=== PATIENT | female | born 1935 | race Caucasian/White ===

== ENCOUNTER 2022-03-25 10:29 | Outpatient (CLI) | payer MEDICARE, BC, SELFPAY | END 2022-03-25 10:30 | disposition home or self-care (01) | LOC: OP CLINIC 10:30 | PROVIDERS: PCP Family Medicine; Visit Provider Internal Medicine Gastroenterology | DX: Z12.11 Encounter for screening for malignant neoplasm of colon (principal); K57.30 Diverticulosis of large intestine without perforation or abscess without bleeding; Z86.010 Personal history of colon polyps | CPT/HCPCS: 45378; J2250; J3010 ==

== ENCOUNTER 2022-08-21 12:40 | Outpatient (CLI) | payer MEDICARE, BC, SELFPAY ==
[2022-08-21 12:45] VITALS: BP 172/70; PULSE 66; RESP 16; O2SAT 98
[2022-08-21] MEDS: TETRACAINE 0.5% OPHTH 1 DROP EYE-BOTH ×3 (12:51→13:49)
[2022-08-21] MEDS: BRIMONIDINE TARTRATE 0.2% OPHTH 1 DROP EYE-BOTH ×2 (12:53→13:58)
--- NOTE | 2022-08-21 14:06 | W.PM.OPTPROC ---
Procedure Note Date of procedure: 08/21/22 Will [facility] bill your pro fee for this procedure?: Yes Procedure Description: SURGEON: Hayley Matos MD PREOPERATIVE DIAGNOSIS: Posterior capsular opacity, right and left eye POSTOPERATIVE DIAGNOSIS: Posterior capsular opacity, right and left eye PROCEDURE: YAG laser capsulotomy, both eyes ANESTHESIA: Topical. ESTIMATED BLOOD LOSS: None PATHOLOGY SPECIMEN: None COMPLICATIONS: None INDICATIONS: See consult note for details. The risks, benefits and alternatives of the procedure were explained to the patient, who elected to proceed and signed informed consent to do so. PROCEDURE: The patient was brought to the pre-holding area where the right and left eyes were identified as the operative eyes. I placed my initials above the eyes. The following was given in both eyes: The patient received 2 sets of 1 drop of 0.5% tetracaine and 1 drop of 1% tropicamide. They also received 1 drop of 0.2% brimonidine. They received 1 drop of 0.5% tetracaine immediately prior to bringing them back for the procedure. The patient was then brought to the procedure room where the right and left eyes were again identified as the operative eyes. A YAG Mando capsulotomy lens was placed on the right eye. The laser was administered using a total number of 17 shots with an energy of 2.4 mJ per shot for a total energy of 41 mJ. The patient tolerated the procedure well. A YAG Mando capsulotomy lens was placed on the left eye. The laser was administered using a total number of 13 shots with an energy of 2.4 mJ per shot for a total energy of 31 mJ. The patient tolerated the procedure well. DISPOSITION: The patient was taken back to the pre-holding area and given 1 drop of 0.2% brimonidine in both eyes. They were discharged to home in stable condition. The patient was instructed to call me or go to the emergency department with any sudden change, including dramatic loss of vision, severe pain in the eye or eyebrow region, nausea, or vomiting. The patient was instructed to use the 0.2% brimonidine 1 drop 2 times a day in both eyes for 1 week. The patient will follow up in the clinic in 1-2 weeks. Surgeon: Hayley Matos MD
== END 2022-08-21 14:02 | disposition home or self-care (01) ==
PROVIDERS: PCP Family Medicine; Visit Provider Ophthalmology
DX: H26.9 Unspecified cataract (principal)
CPT/HCPCS: 66821; A9270

== ENCOUNTER 2023-05-27 07:02 | Emergency (ER) | payer MEDICARE, BC, SELFPAY ==
[2023-05-27] VITALS (16 sets, daily range): BP systolic 144–169; BP diastolic 65–85; PULSE 49–69; RESP 16; TEMP 36.3; O2SAT 90–99; BMI 26.6
--- NOTE | 2023-05-27 07:40 | ED.GENADULT ---
HPI - General Adult General Chief complaint: Arrhythmia/Palpitations <Layla Mackey MD - Last Filed: 05/27/23 23:56> Stated complaint: AFIB <Layla Mackey MD - Last Filed: 05/27/23 23:56> Time Seen by Provider: 05/27/23 07:24 <Layla Mackey MD - Last Filed: 05/27/23 23:56> Source: patient and family <Layla Mackey MD - Last Filed: 05/27/23 23:56> Mode of arrival: ambulatory <Layla Mackey MD - Last Filed: 05/27/23 23:56> History of Present Illness HPI narrative: 87-year-old female with a notable history of prior coronary artery disease and aortic valve replacement presents to the emergency department with concerns of weakness and recurrent AFib. She has a known history of AFib and does not flip in and out of it often. She reports that she woke this morning was awake for several minutes when she felt herself flip into AFib. She feels of fast heart fluttering but with not accompanied by any chest pain or shortness of breath. This lasted until 630 in the morning. She had called her son and therefore was notable of the time. She is chronically anticoagulated on Xarelto and does take metoprolol for rate control and hypertension. She says that she has been feeling quite bit weaker over the past week to week and a half. Reports that she was evaluated in urgent care last week and blood work showed that her electrolytes were a little low. A COVID swab was negative at that time. It does not sound as though any changes to her medications were made at that time. She reports that she has a new primary care provider in the last year. She was previously a patient of Dr. Jovel who has retired. At their last visit in July, she believes that her amlodipine and chlorthalidone were reduced but she is still taking those along with metoprolol and losartan for blood pressure control. She notes no chest pain, no dyspnea on exertion. There is no shortness of breath or cough. She has had no diarrhea, no vomiting, no fever no dysuria. No other symptoms of localizing infection or changes. There have been no recent falls or trauma, she just describes a feeling of easy fatigability and generalized weakness. No focal weakness or stroke-like symptoms. She does follow with her insurance risk analyst every few years per their recommendation and is due for a echo again this spring but she does not recall when the last 1 was but suspects that it was probably around 3 years ago. Past medical history notable for AFib, aortic valve replacement, hypertension. Medications are reviewed in this that is accurate. Allergies are to hydrocortisone, unknown reaction. ROS is notable for the cardiac in generalized symptoms as above, otherwise denies times 12 systems. <Layla Mackey MD - Last Filed: 05/27/23 23:56> Related Data Home medications: Home Medications Medication Instructions Recorded Confirmed amlodipine 2.5 mg tablet 2.5 mg PO DAILY 05/21/23 05/27/23 betamethasone, augmented 0.05 % 1 applic topical BID 05/21/23 05/27/23 topical cream blood sugar diagnostic (True #10 ea 05/21/23 05/21/23 Metrix Glucose Test Strip) chlorthalidone 25 mg tablet 12.5 mg PO QAM 05/21/23 05/27/23 clobetasol 0.05 % topical ointment topical BID PRN 05/21/23 05/21/23 losartan 50 mg tablet 50 mg PO DAILY 05/21/23 05/27/23 metoprolol succinate 25 mg 25 mg PO DAILY 05/21/23 05/27/23 tablet,extended release 24 hr rivaroxaban 15 mg tablet (Xarelto) 15 mg PO DAILY 05/21/23 05/27/23 rosuvastatin 40 mg tablet 40 mg PO DAILY 05/21/23 05/27/23 <Layla Mackey MD - Last Filed: 05/27/23 23:56> Allergies/adverse reactions: Allergies Allergy/AdvReac Type Severity Reaction Status Date / Time hydrocortisone Allergy Verified 05/21/23 11:55 <Layla Mackey MD - Last Filed: 05/27/23 23:56> [facility] Social History: Social History Smoking Status: Never smoker Do you use any of these nicotine containing products: None Second hand tobacco smoke exposure: No How often do you have a drink containing alcohol: never How often do you have six or more drinks on one occasion: Never AUDIT-C Alcohol total score: 0 Non-prescribed substance use: denies use service: No <Layla Mackey MD - Last Filed: 05/27/23 23:56> Exam Const: Vital Signs, click to edit/add: Vital Signs - 24 hr 05/27/23 07:15 05/27/23 07:50 05/27/23 08:00 Temperature 97.4 F L Pulse Rate 65 58 L Pulse Rate [Right Pulse Oximeter] 69 Respiratory Rate 16 Blood Pressure Blood Pressure [Ri ght Upper Arm] 169/78 H Pulse Oximetry 96 96 97 Oxygen Delivery Me thod Room Air 05/27/23 08:01 05/27/23 08:24 05/27/23 08:30 Temperature Pulse Rate 60 51 L 54 L Pulse Rate [Right Pulse Oximeter] Respiratory Rate Blood Pressure 144/68 H Blood Pressure [Ri ght Upper Arm] Pulse Oximetry 95 97 90 Oxygen Delivery Me thod 05/27/23 08:32 05/27/23 08:45 05/27/23 09:00 Temperature Pulse Rate 64 60 54 L Pulse Rate [Right Pulse Oximeter] Respiratory Rate Blood Pressure 146/85 H Blood Pressure [Ri ght Upper Arm] Pulse Oximetry 93 97 96 Oxygen Delivery Me thod 05/27/23 09:02 05/27/23 09:16 05/27/23 09:30 Temperature Pulse Rate 50 L 57 L 51 L Pulse Rate [Right Pulse Oximeter] Respiratory Rate Blood Pressure 149/65 H Blood Pressure [Ri ght Upper Arm] Pulse Oximetry 97 97 98 Oxygen Delivery Me thod 05/27/23 09:31 05/27/23 09:45 05/27/23 10:00 Temperature Pulse Rate 51 L 54 L 49 L Pulse Rate [Right Pulse Oximeter] Respiratory Rate Blood Pressure 153/76 H Blood Pressure [Ri ght Upper Arm] Pulse Oximetry 99 98 94 Oxygen Delivery Me thod 05/27/23 10:02 Temperature Pulse Rate 51 L Pulse Rate [Right Pulse Oximeter] Respiratory Rate Blood Pressure 147/66 H Blood Pressure [Ri ght Upper Arm] Pulse Oximetry 95 Oxygen Delivery Me thod <Layla Mackey MD - Last Filed: 05/27/23 23:56> Vital Signs, click to edit/add: Vital Signs - 24 hr 05/27/23 07:15 05/27/23 07:50 05/27/23 08:00 Temperature 97.4 F L Pulse Rate 65 58 L Pulse Rate [Right Pulse Oximeter] 69 Respiratory Rate 16 Blood Pressure Blood Pressure [Ri ght Upper Arm] 169/78 H Pulse Oximetry 96 96 97 Oxygen Delivery Me thod Room Air 05/27/23 08:01 05/27/23 08:24 05/27/23 08:30 Temperature Pulse Rate 60 51 L 54 L Pulse Rate [Right Pulse Oximeter] Respiratory Rate Blood Pressure 144/68 H Blood Pressure [Ri ght Upper Arm] Pulse Oximetry 95 97 90 Oxygen Delivery Me thod 05/27/23 08:32 05/27/23 08:45 05/27/23 09:00 Temperature Pulse Rate 64 60 54 L Pulse Rate [Right Pulse Oximeter] Respiratory Rate Blood Pressure 146/85 H Blood Pressure [Ri ght Upper Arm] Pulse Oximetry 93 97 96 Oxygen Delivery Me thod 05/27/23 09:02 05/27/23 09:16 05/27/23 09:30 Temperature Pulse Rate 50 L 57 L 51 L Pulse Rate [Right Pulse Oximeter] Respiratory Rate Blood Pressure 149/65 H Blood Pressure [Ri ght Upper Arm] Pulse Oximetry 97 97 98 Oxygen Delivery Me thod 05/27/23 09:31 05/27/23 09:45 05/27/23 10:00 Temperature Pulse Rate 51 L 54 L 49 L Pulse Rate [Right Pulse Oximeter] Respiratory Rate Blood Pressure 153/76 H Blood Pressure [Ri ght Upper Arm] Pulse Oximetry 99 98 94 Oxygen Delivery Me thod 05/27/23 10:02 Temperature Pulse Rate 51 L Pulse Rate [Right Pulse Oximeter] Respiratory Rate Blood Pressure 147/66 H Blood Pressure [Ri ght Upper Arm] Pulse Oximetry 95 Oxygen Delivery Me thod <Mariangel Parry MD - Last Filed: 05/27/23 09:48> Documenting provider has reviewed patient's vital signs: yes <Layla Mackey MD - Last Filed: 05/27/23 23:56> Common normals: no apparent distress and alert <Layla Mackey MD - Last Filed: 05/27/23 23:56> Orientation/consciousness: Yes awake <Layla Mackey MD - Last Filed: 05/27/23 23:56> Other: Good historian for age. Pleasant and cooperative. <Layla Mackey MD - Last Filed: 05/27/23 23:56> HENMT: Common normals: normocephalic <Layla Mackey MD - Last Filed: 05/27/23 23:56> Head and scalp: normocephalic <Layla Mackey MD - Last Filed: 05/27/23 23:56> Face and sinus: normal facial exam <MD Khadar Gomez Last Filed: 05/27/23 23:56> Mouth: oral and palatal mucosa normal <MD Khadar Gomez Last Filed: 05/27/23 23:56> Throat: posterior oropharynx normal <MD Khadar Gomez Last Filed: 05/27/23 23:56> Eye: Common normals: conjunctivae normal <MD Khadar Gomez Last Filed: 05/27/23 23:56> General eye: normal appearance of both eyes <MD Khadar Gomez Last Filed: 05/27/23 23:56> Conjunctiva: conjunctiva(e) normal <MD Khadar Gomez Last Filed: 05/27/23 23:56> Neck & C-Spine: Common normals: full ROM and no lymphadenopathy <MD Khadar Gomez Last Filed: 05/27/23 23:56> Resp: Common normals: normal respiratory effort, no use of accessory muscles and clear to auscultation bilaterally <MD Khadar Gomez Last Filed: 05/27/23 23:56> Effort & inspection: able to speak in complete sentences <MD Khadar Gomez Last Filed: 05/27/23 23:56> Auscultation: clear to auscultation bilaterally <MD Khadar Gomez Last Filed: 05/27/23 23:56> Cardio: Common normals: regular rate and regular rhythm <MD Khadar Gomez Last Filed: 05/27/23 23:56> Rate: regular rate <Layla Mackey MD - Last Filed: 05/27/23 23:56> Rhythm: regular rhythm <Layla Mackey MD - Last Filed: 05/27/23 23:56> Other: 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 <Layla Mackey MD - Last Filed: 05/27/23 23:56> GI: Common normals: Normal to inspection, nondistended, normoactive bowel sounds present, soft to palpation, non-tender and no hepatosplenomegaly <Layla Mackey MD - Last Filed: 05/27/23 23:56> Palpation: soft and no hepatosplenomegaly <Layla Mackey MD - Last Filed: 05/27/23 23:56> Extremity: Other: Trace pitting edema to low ankle <Layla Mackey MD - Last Filed: 05/27/23 23:56> Neuro: Sensorium/orientation: awake and alert <Layla Mackey MD - Last Filed: 05/27/23 23:56> Speech: speech normal <Layla Mackey MD - Last Filed: 05/27/23 23:56> Motor exam: no movement abnormalities noted <Layla Mackey MD - Last Filed: 05/27/23 23:56> Psych: Common normals: speech normal <Layla Mackey MD - Last Filed: 05/27/23 23:56> Attitude: engaged <Layla Mackey MD - Last Filed: 05/27/23 23:56> Activity/motor behavior: appropriate eye contact <Layla Mackey MD - Last Filed: 05/27/23 23:56> Speech: normal speech <Layla Mackey MD - Last Filed: 05/27/23 23:56> Mood and affect: euthymic mood <MD Khadar Gomez Last Filed: 05/27/23 23:56> Insight: insight good <Layla Mackey MD - Last Filed: 05/27/23 23:56> Judgement: judgment good <Layla Mackey MD - Last Filed: 05/27/23 23:56> Skin: Common normals: no rashes or lesions noted <Layla Mackey MD - Last Filed: 05/27/23 23:56> General skin exam: no rashes or lesions noted <Layla Mackey MD - Last Filed: 05/27/23 23:56> Course Course ED Course: Generalized weakness and reported AFib. Currently in sinus rhythm and vitals appear stable. Concern for electrolyte abnormality as it sounds as though this was abnormal at her outpatient visit. She does take chlorthalidone which certainly could be a factor at her age. She also has and aging sound in a aortic valve and could be experiencing new heart failure. I recommended some basic workup including a urinalysis, COVID swab, chest x-ray, basic labs an EKG with cardiac monitoring. I will be handing over care of this patient to my in coming day shift partner. <Layla Mackey MD - Last Filed: 05/27/23 23:56> Reevaluation(s) Reevaluation #1: Evaluated the patient at this time. Patient remains vitally stable. Lab work was unremarkable. Chest x-ray, read by me, did not show any acute pathology. <Mariangel Parry MD - Last Filed: 05/27/23 09:48> Vital Signs Vital signs: Initial Vital Signs Temperature 97.4 F L 05/27/23 07:15 Temperature Source Temporal Artery Scan 05/27/23 07:15 Pulse Rate 69 05/27/23 07:15 Pulse Rhythm Regular 05/27/23 07:15 Respiratory Rate 16 05/27/23 07:15 Blood Pressure 169/78 H 05/27/23 07:15 Blood Pressure Mean 108 H 05/27/23 07:15 Blood Pressure Position Sitting 05/27/23 07:15 Pulse Oximetry 96 05/27/23 07:15 Oxygen Delivery Method Room Air 05/27/23 07:15 Vital Signs Temperature 97.4 F L 05/27/23 07:15 Pulse Rate 69 05/27/23 07:15 Respiratory Rate 16 05/27/23 07:15 Blood Pressure 169/78 H 05/27/23 07:15 Pulse Oximetry 96 05/27/23 07:15 Oxygen Delivery Method Room Air 05/27/23 07:15 Temperature 97.4 F L 05/27/23 07:15 Pulse Rate 51 L 05/27/23 10:02 Respiratory Rate 16 05/27/23 07:15 Blood Pressure 147/66 H 05/27/23 10:02 Pulse Oximetry 95 05/27/23 10:02 Oxygen Delivery Method Room Air 05/27/23 07:15 <Layla Mackey MD - Last Filed: 05/27/23 23:56> Initial Vital Signs Temperature 97.4 F L 05/27/23 07:15 Temperature Source Temporal Artery Scan 05/27/23 07:15 Pulse Rate 69 05/27/23 07:15 Pulse Rhythm Regular 05/27/23 07:15 Respiratory Rate 16 05/27/23 07:15 Blood Pressure 169/78 H 05/27/23 07:15 Blood Pressure Mean 108 H 05/27/23 07:15 Blood Pressure Position Sitting 05/27/23 07:15 Pulse Oximetry 96 05/27/23 07:15 Oxygen Delivery Method Room Air 05/27/23 07:15 Vital Signs Temperature 97.4 F L 05/27/23 07:15 Pulse Rate 69 05/27/23 07:15 Respiratory Rate 16 05/27/23 07:15 Blood Pressure 169/78 H 05/27/23 07:15 Pulse Oximetry 96 05/27/23 07:15 Oxygen Delivery Method Room Air 05/27/23 07:15 Temperature 97.4 F L 05/27/23 07:15 Pulse Rate 51 L 05/27/23 10:02 Respiratory Rate 16 05/27/23 07:15 Blood Pressure 147/66 H 05/27/23 10:02 Pulse Oximetry 95 05/27/23 10:02 Oxygen Delivery Method Room Air 05/27/23 07:15 <Mariangel Parry MD - Last Filed: 05/27/23 09:48> Medical Decision Making MDM Narrative Medical decision making narrative: Episode of AFib with some subjective weakness that has now resolved. Patient states that she is feeling better and feels comfortable going home at this time. <Mariangel Parry MD - Last Filed: 05/27/23 09:48> Medical Records Medical records reviewed: Yes I reviewed the patient's medical records <Mariangel Parry MD - Last Filed: 05/27/23 09:48> Lab Data Lab results reviewed: Yes I reviewed the patient's lab results <Mariangel Parry MD - Last Filed: 05/27/23 09:48> Labs: Lab Results 05/27/23 05/27/23 05/27/23 Range/Units 07:24 07:25 07:54 WBC 6.59 (4.50-11.00) K/uL RBC 4.14 (4.00-5.20) m/uL Hgb 13.0 (12.0-16.0) gm/dL Hct 37.8 (33.0-51.0) % MCV 91 (80-100) fL MCH 31 (26-34) pg MCHC 34 (32-36) gm/dL RDW Coeff of Leanna 12.2 (11.5-15.5) % Plt Count 212 (140-440) K/uL Neut % (Auto) 70.7 (42.0-72.0) % Lymph % (Auto) 18.8 L (20-44) % Cannon % (Auto) 9.0 (0.0-11.0) % Eos % (Auto) 1.2 (0.0-7.0) % Baso % (Auto) 0.0 (0.0-3.0) % Neut # (Auto) 4.66 (1.7-7.0) K/uL Lymph # (Auto) 1.20 (0.90-2.90) K/uL Cannon # (Auto) 0.60 (0.00-0.90) K/UL Eos # (Auto) 0.08 (0.00-0.50) K/uL Baso # (Auto) 0.00 (0.00-0.30) K/uL Abs Immat Gran (auto) 0.02 (0.00-0.30) K/uL Imm/Tot Granulo (auto) 0.3 % Sodium 134 L (135-149) mmol/L Potassium 3.4 L (3.6-5.1) mmol/L Chloride 99 (96-114) mmol/L Carbon Dioxide 27 (20-32) mmol/L Anion Gap 8 (7-15) mEq/L BUN 25 (7-30) mg/dL Creatinine 1.3 (0.5-1.5) mg/dL Estimated Creat Clear 25.70 Estimated GFR 40 ml/min Glucose 175 H (60-115) mg/dL Lactate 1.0 (0.5-1.9) mmol/L Calcium 9.0 (8.4-10.6) mg/dL Total Bilirubin 0.6 (0.1-1.5) mg/dL AST 34 (12-35) U/L ALT 20 (4-35) U/L Alkaline Phosphatase 79 (40-150) U/L Troponin I 0.01 (0.01-0.04) ng/mL C-Reactive Protein 0.5 (0.5-1.0) mg/dL NT-Pro-B Natriuret Pep 382 pg/mL Total Protein 6.5 (6.0-8.3) g/dL Albumin 3.8 (3.3-5.0) g/dL Urine Color (Yellow) Urine Appearance (Clear) Urine pH (5.0-8.5) Ur Specific Conrad (1.000-1.030) Urine Protein (Negative) Urine Glucose (UA) (Negative) Urine Ketones (Negative) Urine Blood (Negative) Urine Nitrite (Negative) Urine Bilirubin (Negative) Urine Urobilinogen (0.2-1.0) Ur Leukocyte Esterase (Negative) Urine RBC (0-2) Urine WBC (0-5) Ur Squamous Epith Cells (None-Few) Amorphous Sediment (None) Urine Bacteria (None) SARS-CoV-2 (PCR) Negative SARS-CoV-2 (Negative) Influenza Type A (PCR) Negative PCR FLU A (Negative) Influenza Type B (PCR) Negative PCR FLU B (Negative) RSV (PCR) Negative PCR RSV (Negative) POC Troponin I 0.00 L (0.01-0.04) ng/ml 05/27/23 Range/Units 09:10 WBC (4.50-11.00) K/uL RBC (4.00-5.20) m/uL Hgb (12.0-16.0) gm/dL Hct (33.0-51.0) % MCV (80-100) fL MCH (26-34) pg MCHC (32-36) gm/dL RDW Coeff of Leanna (11.5-15.5) % Plt Count (140-440) K/uL Neut % (Auto) (42.0-72.0) % Lymph % (Auto) (20-44) % Cannon % (Auto) (0.0-11.0) % Eos % (Auto) (0.0-7.0) % Baso % (Auto) (0.0-3.0) % Neut # (Auto) (1.7-7.0) K/uL Lymph # (Auto) (0.90-2.90) K/uL Cannon # (Auto) (0.00-0.90) K/UL Eos # (Auto) (0.00-0.50) K/uL Baso # (Auto) (0.00-0.30) K/uL Abs Immat Gran (auto) (0.00-0.30) K/uL Imm/Tot Granulo (auto) % Sodium (135-149) mmol/L Potassium (3.6-5.1) mmol/L Chloride (96-114) mmol/L Carbon Dioxide (20-32) mmol/L Anion Gap (7-15) mEq/L BUN (7-30) mg/dL Creatinine (0.5-1.5) mg/dL Estimated Creat Clear Estimated GFR ml/min Glucose (60-115) mg/dL Lactate (0.5-1.9) mmol/L Calcium (8.4-10.6) mg/dL Total Bilirubin (0.1-1.5) mg/dL AST (12-35) U/L ALT (4-35) U/L Alkaline Phosphatase (40-150) U/L Troponin I (0.01-0.04) ng/mL C-Reactive Protein (0.5-1.0) mg/dL NT-Pro-B Natriuret Pep pg/mL Total Protein (6.0-8.3) g/dL Albumin (3.3-5.0) g/dL Urine Color Yellow (Yellow) Urine Appearance Clear (Clear) Urine pH 8.0 (5.0-8.5) Ur Specific Conrad 1.020 (1.000-1.030) Urine Protein 1+ A (Negative) Urine Glucose (UA) Negative (Negative) Urine Ketones Negative (Negative) Urine Blood Trace-intact A (Negative) Urine Nitrite Negative (Negative) Urine Bilirubin Negative (Negative) Urine Urobilinogen 0.2 (0.2-1.0) Ur Leukocyte Esterase Trace A (Negative) Urine RBC 0-2 (0-2) Urine WBC 0-2 (0-5) Ur Squamous Epith Cells Few (None-Few) Amorphous Sediment Few A (None) Urine Bacteria Few A (None) SARS-CoV-2 (PCR) (Negative) Influenza Type A (PCR) (Negative) Influenza Type B (PCR) (Negative) RSV (PCR) (Negative) POC Troponin I (0.01-0.04) ng/ml <Layla Mackey MD - Last Filed: 05/27/23 23:56> Lab Results 05/27/23 05/27/23 05/27/23 Range/Units 07:24 07:25 07:54 WBC 6.59 (4.50-11.00) K/uL RBC 4.14 (4.00-5.20) m/uL Hgb 13.0 (12.0-16.0) gm/dL Hct 37.8 (33.0-51.0) % MCV 91 (80-100) fL MCH 31 (26-34) pg MCHC 34 (32-36) gm/dL RDW Coeff of Leanna 12.2 (11.5-15.5) % Plt Count 212 (140-440) K/uL Neut % (Auto) 70.7 (42.0-72.0) % Lymph % (Auto) 18.8 L (20-44) % Cannon % (Auto) 9.0 (0.0-11.0) % Eos % (Auto) 1.2 (0.0-7.0) % Baso % (Auto) 0.0 (0.0-3.0) % Neut # (Auto) 4.66 (1.7-7.0) K/uL Lymph # (Auto) 1.20 (0.90-2.90) K/uL Cannon # (Auto) 0.60 (0.00-0.90) K/UL Eos # (Auto) 0.08 (0.00-0.50) K/uL Baso # (Auto) 0.00 (0.00-0.30) K/uL Abs Immat Gran (auto) 0.02 (0.00-0.30) K/uL Imm/Tot Granulo (auto) 0.3 % Sodium 134 L (135-149) mmol/L Potassium 3.4 L (3.6-5.1) mmol/L Chloride 99 (96-114) mmol/L Carbon Dioxide 27 (20-32) mmol/L Anion Gap 8 (7-15) mEq/L BUN 25 (7-30) mg/dL Creatinine 1.3 (0.5-1.5) mg/dL Estimated Creat Clear 25.70 Estimated GFR 40 ml/min Glucose 175 H (60-115) mg/dL Lactate 1.0 (0.5-1.9) mmol/L Calcium 9.0 (8.4-10.6) mg/dL Total Bilirubin 0.6 (0.1-1.5) mg/dL AST 34 (12-35) U/L ALT 20 (4-35) U/L Alkaline Phosphatase 79 (40-150) U/L Troponin I 0.01 (0.01-0.04) ng/mL C-Reactive Protein 0.5 (0.5-1.0) mg/dL NT-Pro-B Natriuret Pep 382 pg/mL Total Protein 6.5 (6.0-8.3) g/dL Albumin 3.8 (3.3-5.0) g/dL Urine Color (Yellow) Urine Appearance (Clear) Urine pH (5.0-8.5) Ur Specific Conrad (1.000-1.030) Urine Protein (Negative) Urine Glucose (UA) (Negative) Urine Ketones (Negative) Urine Blood (Negative) Urine Nitrite (Negative) Urine Bilirubin (Negative) Urine Urobilinogen (0.2-1.0) Ur Leukocyte Esterase (Negative) Urine RBC (0-2) Urine WBC (0-5) Ur Squamous Epith Cells (None-Few) Amorphous Sediment (None) Urine Bacteria (None) SARS-CoV-2 (PCR) Negative SARS-CoV-2 (Negative) Influenza Type A (PCR) Negative PCR FLU A (Negative) Influenza Type B (PCR) Negative PCR FLU B (Negative) RSV (PCR) Negative PCR RSV (Negative) POC Troponin I 0.00 L (0.01-0.04) ng/ml 05/27/23 Range/Units 09:10 WBC (4.50-11.00) K/uL RBC (4.00-5.20) m/uL Hgb (12.0-16.0) gm/dL Hct (33.0-51.0) % MCV (80-100) fL MCH (26-34) pg MCHC (32-36) gm/dL RDW Coeff of Leanna (11.5-15.5) % Plt Count (140-440) K/uL Neut % (Auto) (42.0-72.0) % Lymph % (Auto) (20-44) % Cannon % (Auto) (0.0-11.0) % Eos % (Auto) (0.0-7.0) % Baso % (Auto) (0.0-3.0) % Neut # (Auto) (1.7-7.0) K/uL Lymph # (Auto) (0.90-2.90) K/uL Cannon # (Auto) (0.00-0.90) K/UL Eos # (Auto) (0.00-0.50) K/uL Baso # (Auto) (0.00-0.30) K/uL Abs Immat Gran (auto) (0.00-0.30) K/uL Imm/Tot Granulo (auto) % Sodium (135-149) mmol/L Potassium (3.6-5.1) mmol/L Chloride (96-114) mmol/L Carbon Dioxide (20-32) mmol/L Anion Gap (7-15) mEq/L BUN (7-30) mg/dL Creatinine (0.5-1.5) mg/dL Estimated Creat Clear Estimated GFR ml/min Glucose (60-115) mg/dL Lactate (0.5-1.9) mmol/L Calcium (8.4-10.6) mg/dL Total Bilirubin (0.1-1.5) mg/dL AST (12-35) U/L ALT (4-35) U/L Alkaline Phosphatase (40-150) U/L Troponin I (0.01-0.04) ng/mL C-Reactive Protein (0.5-1.0) mg/dL NT-Pro-B Natriuret Pep pg/mL Total Protein (6.0-8.3) g/dL Albumin (3.3-5.0) g/dL Urine Color Yellow (Yellow) Urine Appearance Clear (Clear) Urine pH 8.0 (5.0-8.5) Ur Specific Conrad 1.020 (1.000-1.030) Urine Protein 1+ A (Negative) Urine Glucose (UA) Negative (Negative) Urine Ketones Negative (Negative) Urine Blood Trace-intact A (Negative) Urine Nitrite Negative (Negative) Urine Bilirubin Negative (Negative) Urine Urobilinogen 0.2 (0.2-1.0) Ur Leukocyte Esterase Trace A (Negative) Urine RBC 0-2 (0-2) Urine WBC 0-2 (0-5) Ur Squamous Epith Cells Few (None-Few) Amorphous Sediment Few A (None) Urine Bacteria Few A (None) SARS-CoV-2 (PCR) (Negative) Influenza Type A (PCR) (Negative) Influenza Type B (PCR) (Negative) RSV (PCR) (Negative) POC Troponin I (0.01-0.04) ng/ml <Mariangel Parry MD - Last Filed: 05/27/23 09:48> Imaging Data Chest x-ray: Attestation: I have reviewed the pertinent imaging results. <Mariangel Parry MD - Last Filed: 05/27/23 09:48> Radiologist's impression: PA and lateral views of the chest were acquired FINDINGS: TUBES AND LINES: None. HEART AND MEDIASTINUM: The heart size is normal. The mediastinal contour appears normal for patient age.There has been a transcatheter aortic valve repair. LUNGS AND PLEURAL SPACES: The lungs appear normal.The pleural spaces are unremarkable. OSSEOUS STRUCTURES: Demineralization and degenerative change. IMPRESSION: No evidence of active pulmonary disease. Status post aortic valve repair. <Mariangel Parry MD - Last Filed: 05/27/23 09:48> ECG Data Attestation: I personally reviewed and interpreted this ECG as follows: <Layla Mackey MD - Last Filed: 05/27/23 23:56> Prior ECG tracings: available for review <Layla Mackey MD - Last Filed: 05/27/23 23:56> Interpretation: Reviewed from 05/21/2023. Normal sinus rhythm. Left axis deviation with overall widening of the QRS which looks like it is chronic and unchanged from 05/21. There are no obvious new ischemic changes. Normal intervals. <Layla Mackey MD - Last Filed: 05/27/23 23:56> Discharge Plan Discharge Clinical Impression: Atrial fibrillation <Layla Mackey MD - Last Filed: 05/27/23 23:56> Patient Disposition: Home, Self-Care <Layla Mackey MD - Last Filed: 05/27/23 23:56> Condition: Stable <Layla Mackey MD - Last Filed: 05/27/23 23:56> Additional Instructions: Follow-up with your primary care provider or your insurance risk analyst as needed. Return to the ER if you have any concerns about the way you are feeling. <Layla Mackey MD - Last Filed: 05/27/23 23:56> Prescriptions: No Action metoprolol succinate 25 mg tablet extended release 24 hr 25 mg PO DAILY losartan 50 mg tablet 50 mg PO DAILY amlodipine 2.5 mg tablet 2.5 mg PO DAILY chlorthalidone 25 mg tablet 12.5 mg PO QAM Xarelto 15 mg tablet 15 mg PO DAILY (DME) True Metrix Glucose Test Strip Strip See Rx Instructions .ROUTE DAILY Qty: 10 Rx Instructions: As directed betamethasone, augmented 0.05 % cream 1 applic topical BID clobetasol 0.05 % ointment topical BID PRN rosuvastatin 40 mg tablet 40 mg PO DAILY <Layla Mackey MD - Last Filed: 05/27/23 23:56> Follow Up/Referrals: Bailey Jovel MD [Referring] - <Layla Mackey MD - Last Filed: 05/27/23 23:56> Stand Alone Forms: [facility] Info Instructions <Layla Mackey MD - Last Filed: 05/27/23 23:56>
[2023-05-27 08:01] LABS: Eosinophils Absolute Auto 0.08 K/uL (0.00-0.50); Eosinophils Percent Auto 1.2 % (0.0-7.0); Hematocrit 37.8 % (33.0-51.0); Immature Granulocytes Abs Auto 0.02 K/uL (0.00-0.30); Immature Granulocytes Pct Auto 0.3 %; Lymphocytes Percent Auto 18.8 % (20-44); Mean Corpuscular HGB Conc 34 gm/dL (32-36); Mean Corpuscular Hemoglobin 31 pg (26-34); Mean Corpuscular Volume 91 fL (80-100); Neutrophils Absolute Auto 4.66 K/uL (1.7-7.0); Neutrophils Percent Auto 70.7 % (42.0-72.0); Platelet Count* 212 K/uL (140-440); RDW Coefficient of Variation % 12.2 % (11.5-15.5); Red Blood Count 4.14 m/uL (4.00-5.20); White Blood Count* 6.59 K/uL (4.50-11.00)
[2023-05-27 08:02] LABS: Slide Review Reflex No
--- NOTE | 2023-05-27 08:05 | CRLHL7_ITS ---
For Patients: As a result of the Century Cures Act, medical imaging exams and procedure reports are released immediately into your electronic medical record. You may view this report before your referring provider. If you have questions, please contact your health care provider. INDICATION: Weakness COMPARISON: May 30, 2020 TECHNIQUE: PA and lateral views of the chest were acquired FINDINGS: TUBES AND LINES: None. HEART AND MEDIASTINUM: The heart size is normal. The mediastinal contour appears normal for patient age.There has been a transcatheter aortic valve repair. LUNGS AND PLEURAL SPACES: The lungs appear normal.The pleural spaces are unremarkable. OSSEOUS STRUCTURES: Demineralization and degenerative change. IMPRESSION: No evidence of active pulmonary disease. Status post aortic valve repair. Dictated by Denis Ragsdale MD @ 05/27/2023 8:26:28 AM (Electronically Signed)
[2023-05-27 08:23] LABS: PCR FLU A Negative PCR FLU A (Negative); PCR FLU B Negative PCR FLU B (Negative); PCR RSV Negative PCR RSV (Negative)
[2023-05-27 08:24] LABS: Albumin* 3.8 g/dL (3.3-5.0); Chloride* 99 mmol/L (96-114); Sodium* 134 mmol/L (135-149)
[2023-05-27 08:25] LABS: Potassium* 3.4 mmol/L (3.6-5.1)
[2023-05-27 08:27] LABS: Bilirubin Total* 0.6 mg/dL (0.1-1.5); Creatinine* 1.3 mg/dL (0.5-1.5); Estimated Glomerular Filt Rate 40 ml/min
[2023-05-27 08:28] LABS: Alanine Aminotransferase* 20 U/L (4-35); Alkaline Phosphatase* 79 U/L (40-150); Anion Gap 8 mEq/L (7-15); Aspartate Amino Transferase* 34 U/L (12-35); Blood Urea Nitrogen* 25 mg/dL (7-30); Carbon Dioxide* 27 mmol/L (20-32); Glucose* 175 mg/dL (60-115); Total Protein* 6.5 g/dL (6.0-8.3)
[2023-05-27 08:31] LABS: SARS PCR* Negative SARS-CoV-2 (Negative)
[2023-05-27 08:31] LABS: C Reactive Protein* 0.5 mg/dL (0.5-1.0)
[2023-05-27 08:39] LABS: Troponin I* 0.01 ng/mL (0.01-0.04)
[2023-05-27 08:43] LABS: NT Pro B Type NatriureticPept* 382 pg/mL
[2023-05-27 09:18] LABS: Appearance Urine Clear (Clear); Bilirubin Urine Negative (Negative); Blood Urine Trace-intact (Negative); Color Urine Yellow (Yellow); Glucose Urine Negative (Negative); Ketones Urine Negative (Negative); Leukocyte Esterase Urine Trace (Negative); Nitrite Urine Negative (Negative); Protein Urine 1+ (Negative); Urobilinogen Urine 0.2 (0.2-1.0)
[2023-05-27 09:36] LABS: Amorphous Sediment Urine Few; Bacteria Urine Few; RBC Urine 0-2 (0-2); Squamous Epithelial Cell Urine Few (None-Few); WBC Urine 0-2 (0-5)
== END 2023-05-27 10:20 | disposition home or self-care (01) ==
PROVIDERS: Family Medicine; Emergency Provider Family Medicine; PCP Family Medicine
DX: I48.91 Unspecified atrial fibrillation (principal)
CPT/HCPCS: 36415; 71046; 80053; 81003; 81015; 83605; 83880; 84484; 85025; 86140; 87086; 87186; 87631; 93005; 99284; 99285

== ENCOUNTER 2023-11-18 13:45 | Outpatient (RCR) | payer MEDICARE, BC, SELFPAY | END 2024-03-12 08:16 | disposition home or self-care (01) | PROVIDERS: PCP Family Medicine; Visit Provider Family Medicine | DX: M70.61 Trochanteric bursitis, right hip (principal); Z51.89 Encounter for other specified aftercare | CPT/HCPCS: 97110; 97140; 97162 ==

== ENCOUNTER 2024-07-20 14:30 | Outpatient (RCR) | payer MEDICARE, BC, SELFPAY | END 2024-09-16 11:38 | disposition home or self-care (01) | PROVIDERS: PCP Family Medicine; Visit Provider Family Medicine | DX: M25.552 Pain in left hip (principal); M48.062 Spinal stenosis, lumbar region with neurogenic claudication; Z51.89 Encounter for other specified aftercare | CPT/HCPCS: 97110; 97140; 97161; 97162 ==

== ENCOUNTER 2024-11-03 07:56 | Emergency (ER) | payer MEDICARE, BC, SELFPAY ==
[2024-11-03 07:58] VITALS: BP 148/78; PULSE 92; RESP 18; TEMP 36.4; O2SAT 96; BMI 26.9
--- OUTSIDE RECORDS SUMMARY | 2024-11-03 07:58 | XMS_ITS | Clinical Summary ---
Author Organization [facility] Address [address] [place] [address] Care Team Providers Care Wound Specialist Name Role Phone Elisa Hernández Unavailable [phone] Lazara Del Rio DO Primary Care Provider [phone] Jenifer Charles MD Unavailable [phone] Allergies Active Allergy Reactions Criticality Noted Date Comments Hydrochlorothiazide Rash 11/11/2006 rash with sun exposure Medications cholecalciferol (VITAMIN D) 1,000 unit capsule Take 1 capsule by mouth once daily. 0 12/05/19 16 Active Wh-C0-bve-zinc-gyroscope repairer -jazlyn-boron (CALTRATE 600+D & MIN.) 600 mg calcium- 800 unit-40 mg chew Chew 1 Tablet by mouth once daily. Active WalkerIndications: Spondylolisthesis of lumbar region Rolling Walker for home use for 3 months 1 Each 05/28/20 21 Active acetaminophen (TYLENOL EXTRA STRGTH) 500 mg tablet Take 2 Tablets by mouth every 6 hours if needed for Pain. Max acetaminophen dose: 4000mg in 24 hrs. 0 05/29/20 21 Active nitroglycerin (NITROSTAT) 0.4 mg sublingual tabletIndications: Essential hypertension 1 tab every 5 minutes as needed for chest pain. May take up to 3 tabs 5 minutes apart. If no relief, call 911. 25 Tablet 2 11/25/19 24 Active chlorthalidone (HYGROTON) 25 mg tabletIndications: Essential hypertension Take 0.5 Tablets (12.5 mg) by mouth once daily. 45 Tablet 3 02/18/20 24 Active rivaroxaban (Xarelto) 15 mg tab tabletIndications: Paroxysmal atrial fibrillation (HC) Take 1 Tablet (15 mg) by mouth once daily with evening meal. 90 Tablet 3 02/18/20 24 Active metoprolol succinate (TOPROL XL) 25 mg Sustained-Release tabletIndications: S/P TAVR (transcatheter aortic valve replacement) Take 1 Tablet (25 mg) by mouth once daily. 90 Tablet 3 02/18/20 24 Active rosuvastatin (CRESTOR) 40 mg tabletIndications: Arteriosclerotic cardiovascular disease (ASCVD) Take 1 Tablet (40 mg) by mouth at bedtime. 90 Tablet 3 02/18/20 24 Active amLODIPine (NORVASC) 5 mg tabletIndications: Essential hypertension Take 1 Tablet (5 mg) by mouth once daily. 90 Tablet 3 02/18/20 24 Active losartan (COZAAR) 100 mg tabletIndications: S/P TAVR (transcatheter aortic valve replacement),[facility] hypertension with goal blood pressure less than 140/90 Take 1 Tablet (100 mg) by mouth once daily. 90 Tablet 3 04/13/20 24 Active blood sugar diagnostic (True Metrix Glucose Test Strip) stripIndications:D iabetes mellitus without complication (HC) TEST ONCE DAILY 100 Each 3 06/04/20 24 Active aspirin (ECOTRIN) 81 mg enteric coated tablet Take 1 Tablet (81 mg) by mouth once daily with a meal. 06/15/20 24 Active amoxicillin 500 mg capsule Take 2,000 mg by mouth. 1 HOUR BEFORE DENTAL APPOINTMENT 09/01/19 25 Active empagliflozin (JARDIANCE) 10 mg tabletIndications: Type 2 diabetes mellitus with other circulatory complications (HC) Take 1 Tablet (10 mg) by mouth once daily. 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 Status post TAVR prosthesis with a 26 mm S3 Ultra. A. No evidence for HALT or HAM. 2. No pericardial effusion. 3. No left atrial appendage clot. 4. Please see separate dictated note for additional CT findings Stage 3b chronic kidney disease 09/16/2019 Overview (02/14/2022): kidney function is overall stable from last year (Cr fluctuates to some degree), PTH and Ca are normal, electrolytes normal. Follow with PCP and not follow-up with nephrology if stable (02/2022) Type 2 diabetes mellitus wit h other circulatory complications 04/22/2019 Atrial fibrillation 12/04/2017 Ptosis of both eyelids 10/26/2013 ACP (advance care planning) 12/17/2011 Overview (05/14/2021): Reviewed advance care directives - see scan 12/09/2014 Colon polyp 12/17/2011 Overview (07/02/2016): Colonoscopy 12/2010. Repeat 5 years. Colonoscopy 06/2016 polyp, repeat in 5 years Ascending aortic aneurysm 11/27/2010 Overview (11/26/2016): If stable can follow annually. After gets to 4.7 cm, needs surgery, sooner if dilating quickly By CT 4.1 07/2011, by echocardiogram 3.9 cm 07/2011 ECHO 07/2016 4.0cm Senile osteoporosis 12/15/2009 Overview (11/13/2010): Osteoporosis. 2009, fosamax started Arteriosclerotic cardiovascular disease (ASCVD) 11/23/2008 Overview (04/04/2021): Angio 11/23/08: The LMCA nl, mLAD 60%, pLCx 50%, pRCA 95% tx w/ CHIO CTA pre TAVR 2019: FINAL IMPRESSIONS: 1. Severely calcified bicuspid aortic valve with calcium score of 2720, fusion of the left and right coronary leaflets, and severely reduced leaflet excursion, consistent with severe aortic valve stenosis. 2. Probable >50% diameter stenosis in the proximal left anterior descending artery. 3. Type 1 aortic arch with mildly enlarged ascending aorta (39 x 37 mm). 4. Normal abdominal aortic size and morphology. 5. Nonstenotic iliac and common femoral arteries. Syncope and collapse 08/11/2007 Aortic stenosis, severe 08/11/2007 Overview (09/16/2019): Cardiology 05/2019 - recommend ECHO in 6 months See valve clinic consult from 10/2016 Diabetes mellitus Type II 06/04/2002 Overview (11/23/2008): -TYPE 2 diet controlled -A1C 10/20/08: 6.5 Unspecified essential hypertension Other and unspecified hyperlipidemia Overview (11/23/2008): -Last Lipids: 10/20/08 TC 171, TG 163, HDL 44, LDL 94 Other psoriasis H/O elevated homocysteine Overview (11/11/2006): ELEVATED HOMOCYSTINE LEVEL Resolved Problems Problem Noted Date Diagnosed Date Resolved Date Renal insufficiency 03/31/2009 03/07/20 21 Abnormal Adenosine myoview Stress Test 11/23/2008 11/13/2010 Overview (11/23/2008): -11/16/08: Medium-sized area of moderate ischemia in the base and mid-inferior and inferoseptal almodovar. LVEF 72% Encounters Date Type Department Care Team Description 11/03/2024 Nurse Triage [facility] [address] [place] [address] Lazara Del Rio, DO Leg Injury 10/07/2024 10:45 AM CDT Orders Only [facility] [address] [place] [address] Lab, [place] [facility] 10/07/2024 Travel 09/21/2024 2:05 PM CDT Office Visit [facility] [address] [place] [address] Trenton Del Rio DO Diabetes (160-200s last few days - has been feeling foggy ) 09/21/2024 Telephone [facility] [address] [place] [address] Trenton Del Rio DO Results 09/21/2024 Travel 09/13/2024 Nurse Triage [facility] [address] [place] [address] Lazara Del Rio DO High Blood Sugar 08/18/2024 Telephone [facility] [address] [place] [address] Lazara Del Rio, Follow Up (Requesting a call back) from Last 3 Months Immunizations Immunization Administration Dates Next Due AMB INFLUENZA IIV3 (AGE 65+ YRS) PF (Flu Clinic Only) 05/07/2018 AMB Influenza, IIV3 (Age >=3 years)(Flu Clinic Only) 05/13/2013,04/27/2012,04/30/2011,05/08 Amb Influenza, Inact (High-d ose) (Flu Clinic Only) 05/15/2016,04/26/2014 Amb Influenza, Inactivated A IIV4 (Age 65+ Years) Preserv Free 04/06/2020 COVID-19 vaccine (2 [employer] 30mcg/0.3mL) 12YO+ LINN-SUCROSE PF, MDV 12/19/2021 COVID-19 vaccine (2 [employer]-Bio NTech 30mcg/0.3mL) PF, MDV 05/14/2021,09/16/2020,08/26/2020 DT (Age < 7 years) 09/03/2000 Influenza A (H1N1), Inactiva efrain (Age >=3 Years) 07/24/2009 Influenza, High-dose Inactivated 05/08/2015 Influenza, IIV3 (Age >=3 years) 04/18/20 09,05/17/2008,05/19/2007,05/12 Influenza, Inactivated AIIV4 (Age 65+ Years) Preserv Free 06/02/2023,04/17/2022,03/29/2021,04/06,04/22/2019,05/07/2018,05/01/2017 ,05/15/2016,05/08/2015,04/26/2014,04/15,04/27/2012,04/30/2011, 0,07/24/2009,04/18/2009,05/17/2008,12/2006 Influenza, Inactivated IIV3 (Age 65+ Years) Preserv Free 04/09/2024,04/22/2019,05/01/2017 Pneumococcal Poly,23-Valent (Pneumovax) 07/21/2007 Pneumococcal conj 13-Valent (Prevnar 13) 11/29/2014 RSV, Recombinant ADJ Reconst ituted (Arexvy 120MCG/0.5mL) 06/20/2023 Tdap 12/18/2010 Zoster (Shingrix-RZV, recombinant) 05/19/2018, Zoster (Zostavax-ZVL, live) 06/15/2010 Family History Medical History Relation Name Comments Heart Disease Brother 1 Hypertension Brother 1 Heart Disease Brother 2 Hypertension Brother 2 Cancer-colon Sister Heart Disease Son stent at 47 Cancer-breast No Family History Cancer-ovarian No Family History Relation Name Status Comments Brother 1 (Age 83) heart dise ase Brother 2 (Age 87) parkinsons Sister Son Alive Social History Tobacco Use Types Packs/Day Years Used Date Smoking Tobacco: Never Smokeless Tobacco: Never Tobacco Cessation:Counseling Given: Yes Alcohol Use Standard Drinks/Week Comments Not Currently 0 (1 standard drink = 0.6 oz pur e alcohol) rare PHQ-2 Answer Date Recorded PHQ-2 TOTAL SCORE 0 02/18/2024 Social Connections Answer Date Recorded Do you often feel lonely or isolated from those around you? 0 07/29/2023 Financial Resource Strain Answer Date R ecorded Difficulty of Paying Living Expenses 3 07/29/2023 Difficulty of Paying Living Expenses Not on file 07/29/2023 Food Insecurity Answer Date Recorded Do you worry your food will run out before you are able to buy more? 1 07/29/2023 Transportation Needs Answer Date Record ed Does lack of transportation keep you from medica l appointments? 1 07/29/2023 Does lack of transportation keep you from work, meetings or getting things that you need? 1 07/29/2023 Housing Stability Answer Date Recorded What is your housing situation today? 1 07/29/2023 Utilities Answer Date Recorded Do you have trouble paying f or utilities (for example, heat, electricity, water, phone)? 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 Gender Identity Not on file Sexual Orientation Not on file Obstetrics History Last Filed Vital Signs Vital Sign Reading Time Taken Comments Blood Pressure 145/75 09/21/2024 2:13 PM CDT rec heck Pulse 64 09/21/2024 2:10 PM CDT Temperature 36.3 C (97.4 F) 06/27/2021 12:04 PM GUEST SERVICES MANAGER Respiratory Rate 18 06/27/2021 12:04 PM GUEST SERVICES MANAGER Oxygen Saturation 98% 09/21/2024 2:10 PM CDT Inhaled Oxygen Concentration - - Weight 68.7 kg (151 lb 8 oz) 09/21/2024 2:10 PM CDT Height 160 cm (5' 2.99) 02/18/2024 2:00 PM CDT Body Mass Index 26.84 02/18/2024 2:00 PM CDT Plan of Treatment Upcoming Encounters Date Type Department Care Team (Late st Contact Info) Description 11/23/2024 10:00 AM CDT Ancillary Procedure [facility] [address] [place] [address] 11/30/2024 11:30 AM CDT Office Visit [facility] [address] [place] [address] Jhoan Loya MD [address] [facility] [address] [address] 06/16/2025 12:35 PM GUEST SERVICES MANAGER [facility] [address] [facility] [address] [place], [place] [id number] [place] [address] [place] [address] Health Maintenance Due Date Last Done Comments Tetanus booster 12/18/2020 12/18/2010 COVID-19 vaccine series (2023- season) 2024 06/04/2024, 06/20/2023, 04/17/2022, Additional history exists BMI (ht and wt on same day) for age 18+ 02/17/2025 02/18/2024, 11/12/2022, 12/19/2021, Additional history exists Medicare Wellness for age 65+ 02/18/2025, 01/22/2023, 12/19/2021, Additional history exists Depression screening for age 12+ 02/19/2025 02/20/2024, 02/18/2024, 02/18/2024, Additional history exists Tdap Completed 12/18/2010 Pneumococcal series for age 50+ Completed 5, 07/21/2007 Zoster (shingles) series for age 50+ Completed 05/19/2018, 11/18/2017, 06/15/2010 RSV vaccine for adults or Completed 06/20/2023 DEXA/DXA scan for age 65+ Completed 2023, 07/23/2018, 11/29/2014, Additional history exists Influenza Vaccine Completed 04/09/2024, , 04/17/2022, Additional history exists Goals Goal Patient Goal Type Associated Problems Recent Progress Patient-Stated? Author BLOOD PRESSURE - MAINTAINS BP less than 140/90 Blood Pressure No Maria Luisa Price MD Medical Devices Implanted Type Area Salon Shampoo Assistant Device Identifier Shelf Expiration Date Model / Serial / Lot Singh Lmbr 60x5.5mm Tsrh 3d Cvd Titnm - [id number] Implanted:Qty: 2 on 05/25/2021 by Eduardo Platt MD at [facility] Spine Implants N/A: Spine Medtronic Spine/Ortho [id number] / / [id number] bone 1-4mm 15cc Medtronic Chips Canclls Freeze Dried Implanted:Qty: 1 on 05/25/2021 by Eduardo Platt MD at [facility] Explanted:at [facility] (Quantity not on file) N/A: Spine Medtronic Spine/Ortho 05/19/2025 [id number] / [id number] / Dura Neuro 1xin Duragen Plusnon-Sut - [id number] Implanted:Qty: 1 on 05/25/2021 by Eduardo Platt MD at [facility] N/A: Spine Integra [employer] Mercedes 03/13/2024 [id number] / / [id number] Set Screw Lmbr Tsrh 3dx - [id number] Implanted:Qty: 6 on 05/25/2021 by Eduardo Platt MD at [facility] N/A: Spine Medtronic Spine/Ortho [id number] / / Cnnctr Lmbr Sm Tsrh 3dx Offsettitnm - [id number] Implanted:Qty: 6 on 05/25/2021 by Eduardo Platt MD at [facility] N/A: Spine Medtronic Spine/Ortho [id number] / / Screw Lmbr Post 6.5x35mm Tsrh 3dx Og Thin Va - [id number] Implanted:Qty: 1 on 05/25/2021 by Eduardo Platt MD at [facility] N/A: Spine [employer]onic Spine/Ortho [id number] / / Screw Lmbr Post 6.5x45mm Tsrh 3dx Og Thin Va - [id number] Implanted:Qty: 2 on 05/25/2021 by Eduardo Platt MD at [facility] N/A: Spine Med[employer]onic Spine/Ortho [id number] / / Screw Lmbr Post 7.5x35mm Tsrh 3dx Og Thin Va - [id number] Implanted:Qty: 1 on 05/25/2021 by Eduardo Platt MD at [facility] N/A: Spine Medtronic Spine/Ortho [id number] / / Screw Lmbr Post 7.5x40mm Tsrh 3dx Og Thin Va - [id number] Implanted:Qty: 2 on 05/25/2021 by Eduardo Platt MD at [facility] N/A: Spine Medtronic Spine/Ortho [id number] / / Procedures Procedure Name Priority Date/Time Associated Diagnosis Comments CREATININE Routine 10/07/2024 10:51 AM CDT Chronic kidney disease, stage 3b (HC) HEMOGLOBIN A1C MONITORING (POCT) Routine 09/21/2024 2:44 PM CDT Type 2 diabetes mellitus with other circulatory complications (HC) BASIC METABOLIC PANEL Routine 09/21/2024 2:43 PM CDT Type 2 diabetes mellitus with other circulatory complications (HC) HEMOGLOBIN Routine 09/21/2024 2:43 PM CDT Brain fog MAGNESIUM Routine 09/21/2024 2:43 PM CDT Brain fog XR DXA BONE DENSITY 2 SITES AXIAL Routine 02/23/2024 2:00 PM CDT Senile osteoporosis from Last 3 Months or Most Recently Relevant to Health Maintenance Results * (ABNORMAL) CREATININE (10/07/2024 10:51 AM CDT) CREATININE 1.68(H) 0.60 - 0.95 mg/dL [facility] EGFR 29(L) > OR = 60 mL/min/1.73 m2 [facility] Blood BLOOD SPECIMEN / Unknown 10/07/2024 10:51 AM CDT 10/07/2024 10:51 AM CDT Trenton Del Rio DO CHEMISTRY Final Result [facility] [address] [place] [address], [facility] [address] [place] [address] * (ABNORMAL) POCT Hemoglobin A1C Monitoring (09/21/2024 2:44 PM CDT) POC HEMOGLOBIN A1C 9.0(H) <6.0 % OF TOTAL HGB [facility] Comment: Any point of care results exhibiting inconsistency with the patient's clinical status should be repeated using a different testing method. Blood BLOOD SPECIMEN / Unknown 09/21/2024 2:44 PM CDT 09/21/2024 2:44 PM CDT Trenotn Alvarengamichelle DO CHEMISTRY Final Result Performing Organization Address City/[facility]/ZIP Co de Phone Number [facility] [address] [place] [address], [facility] [address] [place] [address] * HEMOGLOBIN (09/21/2024 2:43 PM CDT) HEMOGLOBIN 14.0 11.7 - 15.5 g/dL [facility] Blood BLOOD SPECIMEN / Unknown 09/21/2024 2:43 PM CDT 09/21/2024 2:43 PM CDT Trenton Lylejosé miguel NAYLOR HEMATOLOGY Final Result Performing Organization Address [facility] Co de Phone Number [facility] [address] [place] [address], [place] [phone] [facility] [address] [place] [address] * MAGNESIUM (09/21/2024 2:43 PM CDT) MAGNESIUM 2.3 1.5 - 2.5 mg/dL [facility] Blood BLOOD SPECIMEN / Unknown 09/21/2024 2:43 PM CDT 09/21/2024 2:43 PM CDT Cortneydarwin Alvarengajosé miguel DO CHEMISTRY Final Result Performing Organization Address City/[facility]/ZIP Co de Phone Number [facility] [address] [place] [address], [place] [phone] [facility] [address] [place] [address] * (ABNORMAL) BASIC METABOLIC PANEL (09/21/2024 2:43 PM CDT) GLUCOSE 209(H) 65 - 99 mg/dL [facility] Comment: Fasting reference interval For someone without known diabetes, a glucose value >125 mg/dL indicates that they may have diabetes and this should be confirmed with a follow-up test. UREA NITROGEN (BUN) 35(H) 7 - 25 mg/dL [facility] CREATININE 2.21(H) 0.60 - 0.95 mg/dL [facility] EGFR 21(L) > OR = 60 mL/min/1.7 3m2 [facility] BUN/CREATININE RATIO 16 6 - 22 (calc) [facility] SODIUM 139 135 - 146 mmol/L [facility] POTASSIUM 3.9 3.5 - 5.3 mmol/L [facility] CHLORIDE 96(L) 98 - 110 mmol/L [facility] CARBON DIOXIDE 31 20 - 32 mmol/L [facility] ELECTROLYTE BALANCE 12 7 - 17 mmol/L (calc) [facility] CALCIUM 9.9 8.6 - 10.4 mg/dL [facility] Blood BLOOD SPECIMEN / Unknown 09/21/2024 2:43 PM CDT 09/21/2024 2:43 PM CDT us Trenton Del Rio DO CHEMISTRY Final Result [facility] [address] [place] [address], [facility] [address] [place] [address] * (ABNORMAL) XR DXA BONE DENSITY 2 SITES AXIAL (02/23/2024 2:00 PM CDT) Anatomical Region Laterality Modality Spine, HIPS, HIPL, HIPR Other Impressions 02/24/2024 3:15 PM CDT Osteoporosis. RECOMMENDATIONS: The National Osteoporosis Foundation recommends pharmacologic treatment for patients with T-scores of -2.5 or less, patients with prior history of fragility fractures, or patients with 10-year probability of greater than 3% at hips or greater than 20% of suffering major osteoporotic fractures. Recommend continued optimization of calcium and vitamin D intake through dietary means and/or supplementation and regular exercise. Consider pharmacologic therapy for osteoporosis. Follow-up bone density reading in 2 years if therapy initiated to assess therapeutic efficacy. Jolene Samuel PA-C [facility] 02/24/2024 Narrative 02/24/2024 3:15 PM CDT For Patients: Results are automatically released to your [facility] (CodeEval) account once available, in compliance with federal regulations. This means that you may see your results before your provider has had a chance to review them. Please allow 2-3 business days for your provider to comment on the results. XR DXA Bone Mineral Density (BMD) EXAM LOCATION: [address] [address] PATIENT NAME: Anne Parra DATE OF : 1935 EXAM DATE: 02/23/2024 REQUESTING PROVIDER: Lazara Del Rio DO GENDER AT : female HEIGHT: 5' 2.99 (02/18/2024) WEIGHT: 147 lb 3.2 oz (02/18/2024) MENOPAUSAL STATUS: Postmenopausal RACE/ETHNICITY: White RISK FACTORS: Family History of Hip Fracture (parental) and White Race CURRENT MEDICATION FOR BONE LOSS: NONE INDICATION: Senile osteoporosis COMPARISON DATE(S): 2014 for spine and 2018 for hips DXA scans are compared to prior studies for a patient only when the two (or more) studies were performed on the same scanner. It is not possible to compare data generated on one scanner to data from another because there are not standards in DXA equipment. This applies even if the two scanners are made by the same vp talent management. PROCEDURE: Dual-energy x-ray absorptiometry performed with routine technique. Reporting is completed in the form of a T-score. The T-score represents the standard deviation from peak bone mass based on young healthy adult. A Z-score is used for diagnosis in premenopausal women, and for men under the age of 50. FINDINGS: RESULT LUMBAR SPINE L1 - L3 w/o L4 BMD: 0.888 g/cm2 T-Score: - 2.4 Z-Score: - 0.5 Change from prior in 2015: Decrease 1.1%. RESULTS FEMUR Left femoral neck BMD: 0.603 g/cm2 T-Score: - 3.1 Z-Score: - 0.7 Change from prior in 2019: Decrease 13.4%. Right femoral neck BMD: 0.523 g/cm2 T-Score: - 3.7 Z-Score: - 1.3 Change from prior in 2019: Decrease 21.1%. Left hip BMD: 0.639 g/cm2 T-Score: - 2.9 Z-Score: - 0.6 Change from prior in 2019: Decrease 11.1%. Right hip BMD: 0.590 g/cm2 T-Score: - 3.3 Z-Score: - 0.9 Change from prior in 2019: Decrease 14.7%. WHO criteria: Normal: T-score at or above -1 SD Osteopenia: T-score between -1.1 and -2.4 SD Osteoporosis: T-score at or below -2.5 SD [facility] Lylejosé miguel DO DEXA Final Result from Last 3 Months or Most Recently Relevant to Health Maintenance Insurance HC MEDICARE PPS [facility] MEDICARE PB ONLY MEDICARE PART B HB ONLY MEDICARE PART A HB ONLY Member Subscriber Plan / Payer (Ef fective 2001-Present) Name:Anne Parra Member ID:[id number] Relation to Subscriber:Self Name:Fidel Anne Russ Subscriber ID:[id number] Payer ID:Not on file Group ID:Not on file Type:Not on file Address: ATTN: CLAIMS [id number] [facility] Advance Directives Documents on File Type Date Recorded 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 Expl anation Healthcare Directive 12/09/2014 12:27 PM A Lila BENEDICT, 01/19/2014 * Full Code (Latest Code Status on File) Date Activated Date Inactivated Comments 05/25/2021 4:32 PM 05/28/2021 6:12 PM Question Answer Comments Code Status Discussion: Discussed * Full Code Date Activated Date Inactivated Comments 05/17/2020 6:21 AM 05/19/2020 4:02 PM Question Answer Comments Code Status Discussion: Discussed * Full Code Date Activated Date Inactivated Comments 01/21/2020 7:49 AM 01/21/2020 3:40 PM * Full Code Date Activated Date Inactivated Comments 11/23/2008 9:28 AM 11/24/2008 6:35 PM Care Teams Wound Specialist Relationship Specialty Start Date End Date Lazara Del Rio DO [address] [place] [address] PCP - General Family Practice 11/21/22 Elisa Hernández PA Cardiology Physician Passenger Relations Representative 05/24/20 [place] [address] [place] [address] Endocrinology Endocrinology 06/16/24
--- NOTE | 2024-11-03 08:32 | ED.WOUNDLAC ---
HPI - Wound/Laceration General Chief Complaint: Laceration/Wound Stated Complaint: right leg bleeding Time Seen by Provider: 11/03/24 07:59 History of Present Illness HPI narrative: This 89-year-old female has a laceration on the lateral aspect of her right lower extremity nursing home between and ankle in the knee. This occurred yesterday afternoon. She states that she opened a car door and the when cause the corner of the door to slam into her leg. She bandage the wound but comes in now today about 18 hours later because of persistent bleeding. She is taking Xarelto. Her tetanus status is up-to-date. She states that it was renewed a couple weeks ago. Related Data Home Medications ?Medication ?Instructions ?Recorded ?Confirmed amlodipine 2.5 mg tablet 2.5 mg PO DAILY 05/21/23 11/03/24 betamethasone, augmented 0.05 % 1 applic topical BID 05/21/23 11/03/24 topical cream blood sugar diagnostic (True #10 ea 05/21/23 05/21/23 Metrix Glucose Test Strip) chlorthalidone 25 mg tablet 12.5 mg PO QAM 05/21/23 11/03/24 clobetasol 0.05 % topical ointment 1 applic topical BID PRN 05/21/23 11/03/24 losartan 50 mg tablet 50 mg PO DAILY 05/21/23 11/03/24 metoprolol succinate 25 mg 25 mg PO DAILY 05/21/23 11/03/24 tablet,extended release 24 hr rivaroxaban 15 mg tablet (Xarelto) 15 mg PO DAILY 05/21/23 11/03/24 rosuvastatin 40 mg tablet 40 mg PO DAILY 05/21/23 11/03/24 amlodipine 5 mg tablet 5 mg PO DAILY 11/03/24 11/03/24 empagliflozin 10 mg tablet 10 mg PO DAILY 11/03/24 11/03/24 (Jardiance) fluocinonide 0.05 % topical topical DAILY PRN 11/03/24 solution potassium chloride 20 mEq 20 meq PO DAILY 11/03/24 11/03/24 tablet,extended release(part/cryst) Allergies Allergy/AdvReac Type Severity Reaction Status Date / Time hydrocortisone Allergy Verified 11/03/24 08:03 Review of Systems Status of ROS: Reports: 10 or more systems reviewed and unremarkable except as noted in History and below Narrative: Constitutional: No fevers, no weight gain or loss. Eyes: No discharge. No vision changes. HENT: No congestion, no sore throat, no ear pain. Cardiovascular: No chest pain, no palpitations. Respiratory: No shortness of breath, no wheezes, no cough. Gastrointestinal: No abdominal pain, no vomiting, no diarrhea. Genitourinary: No dysuria, no hematuria. Musculoskeletal: Normal range of motion. Skin: No rashes, no pruritis. Neurological: No dizziness, weakness, sensory change, speech change. Endo/Heme/Allergies: No bruising or bleeding. No polydipsia. Pysch: no suicidality, no anxiety, no insomnia. All other systems reviewed and are negative. [facility] Social History Smoking Status: Never smoker Do you use any of these nicotine containing products: None Second hand tobacco smoke exposure: No How often do you have a drink containing alcohol: never How often do you have six or more drinks on one occasion: Never AUDIT-C Alcohol total score: 0 Non-prescribed substance use: denies use service: No Exam Narrative: Exam Narrative: Constitutional: Well-developed, well-nourished, no acute distress. HEENT: Normocephalic, atraumatic. Neck: Normal range of motion. Nontender. Supple. Heart: Intact distal pulses. Lungs: No chest discomfort. No wheezes, rhonchi, or rales. Abdomen: Nontender. Back: Normal range of motion. Extremities: Normal range of motion. Right lower extremity has a 6 cm flap-type laceration that has some persistent small amount of bleeding. Skin: Intact. No rash. Warm. No erythema or pallor. Neurologic: No altered sensation. No weakness. Alert and oriented. Psychiatric: No suicidality. No anxiety or depression. No insomnia. Nursing notes and vitals signs are reviewed. Const: Vital Signs, click to edit/add: Vital Signs - 24 hr 11/03/24 07:58 Temperature 97.5 F L Pulse Rate [Pulse Oximeter] 92 Respiratory Rate 18 Blood Pressure [Ri ght Upper Arm] 148/78 H Pulse Oximetry 96 Oxygen Delivery Me thod Room Air Course Vital Signs Vital signs: Initial Vital Signs Temperature 97.5 F L 11/03/24 07:58 Temperature Source Temporal Artery Scan 11/03/24 07:58 Pulse Rate 92 11/03/24 07:58 Respiratory Rate 18 11/03/24 07:58 Blood Pressure 148/78 H 11/03/24 07:58 Blood Pressure Mean 101 11/03/24 07:58 Blood Pressure Position Sitting 11/03/24 07:58 Pulse Oximetry 96 11/03/24 07:58 Oxygen Delivery Method Room Air 11/03/24 07:58 Vital Signs Temperature 97.5 F L 11/03/24 07:58 Pulse Rate 92 11/03/24 07:58 Respiratory Rate 18 11/03/24 07:58 Blood Pressure 148/78 H 11/03/24 07:58 Pulse Oximetry 96 11/03/24 07:58 Oxygen Delivery Method Room Air 11/03/24 07:58 Temperature 97.5 F L 11/03/24 07:58 Pulse Rate 92 11/03/24 07:58 Respiratory Rate 18 11/03/24 07:58 Blood Pressure 148/78 H 11/03/24 07:58 Pulse Oximetry 96 11/03/24 07:58 Oxygen Delivery Method Room Air 11/03/24 07:58 MDM - Wound/Laceration MDM Narrative Medical decision making narrative: This patient is on Xarelto and has persistent bleeding from a laceration on her right lower extremity. The wound occurred more than 12 hours ago so I explained to the patient that there can be an increased risk of infection to repair wound at this time. However her Xarelto and persistent bleeding warrants some type of intervention. The patient is preferring some sutures. After anesthesia with 1% lidocaine with epinephrine the wound was cleansed. I placed 5 sutures in interrupted fashion using 4.0 Ethilon suture to approximate the wound edges yet allowing room for drainage if needed. At the end of the repair there was no sign of bleeding. Instructions were given regarding wound care. The patient had a nonstick dressing placed over this along with a circumferential wrap for some small amount or pressure. Discharge Plan Discharge Clinical Impression: Laceration Patient Disposition: Home, Self-Care Condition: Improved Additional Instructions: Keep wound clean and dry. Follow-up with clinic or urgent care in 7-10 days for suture removal. Return if worsening. Prescriptions: No Action metoprolol succinate 25 mg tablet extended release 24 hr 25 mg PO DAILY losartan 50 mg tablet 50 mg PO DAILY amlodipine 2.5 mg tablet 2.5 mg PO DAILY chlorthalidone 25 mg tablet 12.5 mg PO QAM Xarelto 15 mg tablet 15 mg PO DAILY (DME) True Metrix Glucose Test Strip Strip See Rx Instructions .ROUTE DAILY Qty: 10 Rx Instructions: As directed betamethasone, augmented 0.05 % cream 1 applic topical BID clobetasol 0.05 % ointment 1 applic topical BID PRN rosuvastatin 40 mg tablet 40 mg PO DAILY amlodipine 5 mg tablet 5 mg PO DAILY potassium chloride 20 mEq tablet,ER particles/crystals 20 meq PO DAILY fluocinonide 0.05 % solution topical DAILY PRN Jardiance 10 mg tablet 10 mg PO DAILY Follow Up/Referrals: Lazara Del Rio DO [Primary Care Provider] - Stand Alone Forms: [facility] Info Instructions
--- OUTSIDE RECORDS SUMMARY | 2024-11-03 08:48 | XMS_ITS | Clinical Summary ---
Author Organization [facility] Address [address] [place] [address] Care Team Providers Care Heel Coverer Machine Operator Name Role Phone Elisa Hernández Unavailable [phone] Lazara Del Rio DO Primary Care Provider [phone] Jenifer Charles MD Unavailable [phone] Allergies Active Allergy Reactions Criticality Noted Date Comments Hydrochlorothiazide Rash 11/11/2006 rash with sun exposure Medications cholecalciferol (VITAMIN D) 1,000 unit capsule Take 1 capsule by mouth once daily. 0 12/05/[address]U1-toz-zinc-photocopier technician -jazlyn-boron (CALTRATE 600+D & MIN.) 600 mg [...] mg tabletIndications: S/P TAVR (transcatheter aortic valve replacement),[facility] hypertension with goal blood pressure less than [...] Department Care Team Description 11/03/2024 Nurse Triage [facility] [address] [facility] [place] [address] Lazara Del Rio, DO Leg Injury 10/07/2024 10:45 AM CDT Orders Only [facility] [address] [facility] [place] [address] Lab, [place] [facility] 10/07/2024 Travel 09/21/2024 2:05 PM CDT Office Visit [facility] [address] [facility] [place] [address] Trenton Del Rio DO Diabetes (160-200s last few days - has been feeling foggy ) 09/21/2024 Telephone [facility] [address] [facility] [place] [address] Trenton Del Rio DO Results 09/21/2024 Travel 09/13/2024 Nurse Triage [facility] [address] [facility] [place] [address] Lazara Del Rio DO High Blood Sugar 08/18/2024 Telephone [facility] [address] [facility] [place] [address] Lazara Del Rio, Follow Up (Requesting a call back) from Last 3 Months Immunizations Immunization Administration Dates Next Due AMB INFLUENZA IIV3 (AGE 65+ YRS) PF (Flu Clinic Only) 05/07/2018 AMB Influenza, IIV3 (Age >=3 years)(Flu Clinic Only) 05/13/2013,04/27/2012,04/30/2011,05/08 Amb Influenza, Inact (High-d ose) (Flu Clinic Only) 05/15/2016,04/26/2014 Amb Influenza, Inactivated A IIV4 (Age 65+ Years) Preserv Free 04/06/2020 COVID-19 vaccine (ActX-Pairin NTech 30mcg/0.3mL) 12YO+ LINN-SUCROSE PF, MDV 12/19/2021 COVID-19 vaccine (ActX-Bio NTech 30mcg/0.3mL) PF, MDV 05/14/2021,09/16/2020,08/26/2020 DT (Age [...] on file Legal Sex Female 5:25 AM BAG LINER Gender Identity Not on file Sexual Orientation Not on file Obstetrics History Last Filed Vital Signs Vital Sign Reading Time Taken Comments Blood Pressure 145/75 09/21/2024 2:13 PM CDT rec heck Pulse 64 09/21/2024 2:10 PM CDT Temperature 36.3 C (97.4 F) 06/27/2021 12:04 PM BAG LINER Respiratory Rate 18 06/27/2021 12:04 PM BAG LINER Oxygen Saturation 98% 09/21/2024 2:10 PM CDT Inhaled Oxygen Concentration - - Weight 68.7 kg (151 lb 8 oz) 09/21/2024 2:10 PM CDT Height 160 cm (5' 2.99) 02/18/2024 2:00 PM CDT Body Mass Index 26.84 02/18/2024 2:00 PM CDT Plan of Treatment Upcoming Encounters Date Type Department Care Team (Late st Contact Info) Description 11/23/2024 10:00 AM CDT Ancillary Procedure [facility] [address] [place] [address] 11/30/2024 11:30 AM CDT Office Visit [facility] [address] [place] [address] Jhoan Loya MD [address] [facility] [address] [address] 06/16/2025 12:35 PM BAG LINER [facility] [address] [facility] [address] [place], [place] [id number] [place] [address] [place] [address] Health Maintenance Due Date Last Done Comments [...] Price MD Medical Devices Implanted Type Area Flat Lock Operator Device Identifier Shelf Expiration Date Model / Serial / Lot Singh Lmbr 60x5.5mm Tsrh 3d Cvd Titnm - [id number] Implanted:Qty: 2 on 05/25/2021 by Eduardo Platt MD at [facility] Spine Implants N/A: Spine Medtronic Spine/Ortho [id number] / / [id number] bone 1-4mm 15cc Medtronic Chips Canclls Freeze Dried Implanted:Qty: 1 on 05/25/2021 by Eduardo Platt MD at [facility] Explanted:at [facility] (Quantity not on file) N/A: Spine Medtronic Spine/Ortho 05/19/2025 [id number] / [id number] / Dura Neuro 1xin Duragen Plusnon-Sut - [id number] Implanted:Qty: 1 on 05/25/2021 by Eduardo Platt MD at [facility] N/A: Spine Integra [employer] Mercedes 03/13/2024 [id number] / / [id number] Screw Lmbr Tsrh 3dx - [id number] Implanted:Qty: 6 on 05/25/2021 by Eduardo Platt MD at [facility] N/A: Spine Medtronic Spine/Ortho [id number] / / Cnnctr Lmbr Sm Tsrh 3dx Offsettitnm - [id number] Implanted:Qty: 6 on 05/25/2021 by Eduardo Platt MD at [facility] N/A: Spine Medtronic Spine/Ortho [id number] / / Screw Lmbr Post 6.5x35mm Tsrh 3dx Og Thin Va - [id number] Implanted:Qty: 1 on 05/25/2021 by Eduardo Platt MD at [facility] N/A: Spine Medtronic Spine/Ortho [id number] / / Screw Lmbr Post 6.5x45mm Tsrh 3dx Og Thin Va - [id number] Implanted:Qty: 2 on 05/25/2021 by Eduardo Platt MD at [facility] N/A: Spine Medtronic Spine/Ortho [id number] / / Screw Lmbr Post 7.5x35mm Tsrh 3dx Og Thin Va - [id number] Implanted:Qty: 1 on 05/25/2021 by Eduardo Platt MD at [facility] N/A: Spine Medtronic Spine/Ortho [id number] / / Screw Lmbr Post 7.5x40mm Tsrh 3dx Og Thin Va - [id number] Implanted:Qty: 2 on 05/25/2021 by Eduardo Platt MD at [facility] N/A: Spine Medtronic Spine/Ortho [id number] / / Procedures Procedure Name Priority Date/Time [...] CDT) CREATININE 1.68(H) 0.60 - 0.95 mg/dL [facility] EGFR 29(L) > OR = 60 mL/min/1.73 m2 [facility] Blood BLOOD SPECIMEN / Unknown 10/07/2024 10:51 AM CDT 10/07/2024 10:51 AM CDT Trenton Del Rio DO CHEMISTRY Final Result [facility] [address] [place] [address], [facility] [address] [place] [address] * (ABNORMAL) POCT Hemoglobin A1C Monitoring (09/21/2024 2:44 PM CDT) POC HEMOGLOBIN A1C 9.0(H) <6.0 % OF TOTAL HGB [facility] Comment: Any point of care results exhibiting inconsistency with the patient's clinical status should be repeated using a different testing method. Blood BLOOD SPECIMEN / Unknown 09/21/2024 2:44 PM CDT 09/21/2024 2:44 PM CDT Trenton Alvarengamichelle DO CHEMISTRY Final Result Performing Organization Address City/[facility]/ZIP Co de Phone Number [facility] [address] [place] [address], [facility] [address] [place] [address] * HEMOGLOBIN (09/21/2024 2:43 PM CDT) HEMOGLOBIN 14.0 11.7 - 15.5 g/dL [facility] Blood BLOOD SPECIMEN / Unknown 09/21/2024 2:43 PM CDT 09/21/2024 2:43 PM CDT Trenton Lylejosé miguel NAYLOR HEMATOLOGY Final Result Performing Organization Address [facility] Co de Phone Number [facility] [address] [place] [address], [place] [phone] [facility] [address] [place] [address] * MAGNESIUM (09/21/2024 2:43 PM CDT) MAGNESIUM 2.3 1.5 - 2.5 mg/dL [facility] Blood BLOOD SPECIMEN / Unknown 09/21/2024 2:43 PM CDT 09/21/2024 2:43 PM CDT Cortneydarwin Alvarengajosé miguel DO CHEMISTRY Final Result Performing Organization Address City/[facility]/ZIP Co de Phone Number [facility] [address] [place] [address], [place] [phone] [facility] [address] [place] [address] * (ABNORMAL) BASIC METABOLIC PANEL (09/21/2024 2:43 PM CDT) GLUCOSE 209(H) 65 - 99 mg/dL [facility] Comment: Fasting reference interval For someone without known diabetes, a glucose value >125 mg/dL indicates that they may have diabetes and this should be confirmed with a follow-up test. UREA NITROGEN (BUN) 35(H) 7 - 25 mg/dL [facility] CREATININE 2.21(H) 0.60 - 0.95 mg/dL [facility] EGFR 21(L) > OR = 60 mL/min/1.7 3m2 [facility] BUN/CREATININE RATIO 16 6 - 22 (calc) [facility] SODIUM 139 135 - 146 mmol/L [facility] POTASSIUM 3.9 3.5 - 5.3 mmol/L [facility] CHLORIDE 96(L) 98 - 110 mmol/L [facility] CARBON DIOXIDE 31 20 - 32 mmol/L [facility] ELECTROLYTE BALANCE 12 7 - 17 mmol/L (calc) [facility] CALCIUM 9.9 8.6 - 10.4 mg/dL [facility] Blood BLOOD SPECIMEN / Unknown 09/21/2024 2:43 PM CDT 09/21/2024 2:43 PM CDT us Trenton Del Rio DO CHEMISTRY Final Result [facility] [address] [place] [address], [facility] [address] [place] [address] * (ABNORMAL) XR DXA BONE DENSITY 2 [...] to assess therapeutic efficacy. Jolene Samuel PA-C [facility] 02/24/2024 Narrative 02/24/2024 3:15 PM CDT For Patients: Results are automatically released to your [facility] account once available, in compliance with federal regulations. This means that you may see your results before your provider has had a chance to review them. Please allow 2-3 business days for your provider to comment on the results. XR DXA Bone Mineral Density (BMD) EXAM LOCATION: [address] [address] PATIENT NAME: Anne Parra DATE OF : [...] two scanners are made by the same baggage handler. PROCEDURE: Dual-energy x-ray absorptiometry performed with routine [...] Osteoporosis: T-score at or below -2.5 SD [facility] Lylejosé miguel DO DEXA Final Result from Last 3 Months or Most Recently Relevant to Health Maintenance Insurance HC MEDICARE PPS [facility] MEDICARE PB ONLY MEDICARE PART B HB ONLY MEDICARE PART A HB ONLY Member Subscriber Plan / Payer (Ef fective 2001-Present) Name:Anne Parra Member ID:[id number] Relation to Subscriber:Self Name:Fidel Anne Russ Subscriber ID:[id number] Payer ID:Not on file Group ID:Not on file Type:Not on file Address: ATTN: CLAIMS [address] [facility] Advance Directives Documents on File Type Date Recorded Patient Client Administrator Expl anation Healthcare Directive 12/09/2014 12:27 PM [...] 9:28 AM 11/24/2008 6:35 PM Care Teams Heel Coverer Machine Operator Relationship Specialty Start Date End Date Lazara Del Rio DO [address] [place] [address] PCP - General Family Practice 11/21/22 Elisa Hernández PA Cardiology Physician Conductor Freight 05/24/20 [place] [address] [place] [address] Endocrinology Endocrinology 06/16/24
== END 2024-11-03 08:58 | disposition home or self-care (01) ==
LOC: ED 08:46
PROVIDERS: Emergency Provider Emergency Medicine Emergency Medical Services; PCP Family Medicine
DX: S81.811A Laceration without foreign body, right lower leg, initial encounter (principal); W26.9XXA Contact with unspecified sharp object(s), initial encounter
CPT/HCPCS: 12001; 99283; 99284

== ENCOUNTER 2025-01-05 07:45 | Emergency (ER) | payer MEDICARE, BC, SELFPAY ==
[2025-01-05] VITALS (10 sets, daily range): BP systolic 125–152; BP diastolic 55–81; PULSE 50–68; RESP 12–20; TEMP 36.2; O2SAT 92–97; BMI 24.4
--- OUTSIDE RECORDS SUMMARY | 2025-01-05 07:48 | XMS_ITS | Clinical Summary ---
Author Organization [employer] [facility] [employer] [facility] Address [address] [place] [address] Care Team Providers Care Property Claims Adjuster Name Role Phone Elisa Hernández Unavailable [phone] Lazara Del Rio DO Primary Care Provider [phone] Jenifer Charles MD Unavailable [phone] Allergies Active Allergy Reactions Criticality Noted Date Comments Hydrochlorothiazide Rash 11/11/2006 rash with sun exposure Medications cholecalciferol (VITAMIN D) 1,000 unit capsule Take 1 capsule by mouth once daily. 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 hypertension with goal blood pressure less [...] daily. 90 Tablet 3 09/22/19 25 Active potassium chloride 20 mEq extended-release tablet (part/cryst) TAKE 1 TABLET (20 MEQ TOTAL) BY MOUTH 1 (ONE) TIME EACH DAY DO NOT CRUSH OR CHEW. Active predniSONE 20 mg tabletIndications: Myalgia Take 1 Tablet (20 mg) by mouth once daily with a meal. 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 [...] Encounters Date Type Department Care Team Description 12/29/2024 1:40 PM CDT Office Visit [facility] [address] [place] [address] Kadeem Colorado MD Leg Pain/problem (R leg pain - Completed Prednisone, mild improvement) 12/29/2024 Travel 12/21/2024 12:00 PM CDT Ancillary Procedure [facility] [address] [place] [address] 12/21/2024 11:45 AM CDT Ancillary Procedure [facility] [address] [place] [address] 12/21/2024 11:10 AM CDT Office Visit [facility] [address] [place] [address] Karlene Rutledge PA Leg Pain/problem (And Hip-Right side) 12/21/2024 Travel 12/07/2024 2:15 PM CDT Orders Only [facility] [address] [place] [address] [facility] [place] [facility] 12/07/2024 Travel 11/30/2024 11:30 AM CDT Office Visit [facility] [address] [place] [id number] Jhoan Stallings MD Follow Up (S/P TAVR review Echocardiogram - yearly visit ) 11/30/2024 Travel 11/23/2024 10:00 AM CDT Ancillary Procedure [facility] [address] [place] [address] 11/23/2024 Travel 11/15/2024 10:15 AM CDT Office Visit [facility] [place] [address] Karlene Rutledge PA Leg Laceration (Recheck) 11/15/2024 Travel 11/12/2024 10:15 AM CDT Office Visit [facility] [address] [place] [address] Karlene Rutledge PA Suture Removal 11/12/2024 Travel 11/12/2024 Telephone [facility] [address] [place] [address] Quang Lazara Wendy, DO Appointment 11/10/2024 Telephone [facility] [address] [place] [address] Lyleqra Lazara Wendy, DO Referral 11/10/2024 Telephone [facility] Providers [address] [address] Jorge Alberto Valero MD Referral (blood work); Error-please disregard 11/10/2024 Telephone [facility] [address] [place] [address] Sir Del Rioi Wendy, DO Error-please disregard 11/03/2024 Nurse Triage [facility] [address] [place] [address] Quang Lazara Wendy, DO Leg Injury 10/07/2024 10:45 AM CDT Orders Only [facility] [address] [place] [address] [facility] [place] [facility] 10/07/2024 Travel from Last 3 Months Immunizations Immunization Administration Dates Next Due AMB INFLUENZA IIV3 (AGE 65+ YRS) PF (Flu Clinic Only) 05/07/2018 AMB Influenza, IIV3 (Age >=3 years)(Flu Clinic Only) 05/13/2013,04/27/2012,04/30/2011,05/08 Amb Influenza, Inact (High-d ose) (Flu Clinic Only) 05/15/2016,04/26/2014 Amb Influenza, Inactivated A IIV4 (Age 65+ Years) Preserv Free 04/06/2020 COVID-19 vaccine (InCast-Bio NTech 30mcg/0.3mL) 12YO+ LINN-SUCROSE PF, MDV 12/19/2021 COVID-19 vaccine (Pfizer-Bio NTech 30mcg/0.3mL) PF, MDV 05/14/2021,09/16/2020,08/26/2020 DT (Age [...] or isolated from those around you? 0 11/12/2024 Financial Resource Strain Answer Date R ecorded Difficulty of Paying Living Expenses 3 11/12/2024 Difficulty of Paying Living Expenses Not on file 11/12/2024 Food Insecurity Answer Date Recorded Do you worry your food will run out before you are able to buy more? 1 11/12/2024 Transportation Needs Answer Date Record ed Does lack of transportation keep you from medica l appointments? 1 11/12/2024 Does lack of transportation keep you from work, meetings or getting things that you need? 1 11/12/2024 Housing Stability Answer Date Recorded What is your housing situation today? 1 11/12/2024 Utilities Answer Date Recorded Do you have trouble paying f or utilities (for example, heat, electricity, water, phone)? 1 11/12/2024 Comments No Sex and Gender Information Value Date Recorded Sex Assigned at Not on file Legal Sex Female 5:25 AM DRY END TESTER Gender Identity Not on file Sexual Orientation Not on file Obstetrics History Last Filed Vital Signs Vital Sign Reading Time Taken Comments Blood Pressure 153/69 12/29/2024 1:32 PM CDT Pulse 62 12/29/2024 1:32 PM CDT Temperature 36.5 C (97.7 F) 11/12/2024 10:17 AM CDT Respiratory Rate 18 06/27/2021 12:04 PM DRY END TESTER Oxygen Saturation 98% 12/29/2024 1:32 PM CDT Inhaled Oxygen Concentration - - Weight 63.6 kg (140 lb 3.2 oz) 12/29/2024 1:32 P M CDT Height 160 cm (5' 2.99) 02/18/2024 2:00 PM CDT Body Mass Index 24.84 02/18/2024 2:00 PM CDT Plan of Treatment Upcoming Encounters Date Type Department Care Team (Late st Contact Info) Description 06/16/2025 12:35 PM DRY END TESTER Office Visit [facility] [address] [address] [place] [address] [place], [place] [id number] Health Maintenance Due Date Last Done Comments Tetanus booster 12/18/2020 12/18/2010 COVID-19 vaccine series ( season) 2024 06/04/2024, 06/20/2023, 04/17/2022, Additional history exists BMI (ht and wt on same day) for age 18+ 02/17/2025 02/18/2024, 11/12/2022, 12/19/2021, Additional history exists Medicare Wellness for age 65+ 02/18/2025 02/18/2024, 01/22/2023, 12/19/2021, Additional history exists Depression screening for age 12+ 02/19/2025 02/20/2024, 02/18/2024, 02/18/2024, Additional history exists Tdap Completed 12/18/2010 Pneumococcal series for age 50+ Completed 11/29/2014, 07/21/2007 Zoster (shingles) series for age 50+ Completed 05/19/2018, 11/18/2017, 06/15/2010 RSV vaccine for adults or Completed 06/20/2023 DEXA/DXA scan for age 65+ Completed 2023, 07/23/2018, 11/29/2014, Additional history exists Influenza Vaccine Completed 04/09/2024, , 04/17/2022, Additional history exists Hepatitis B series for 19+ Aged Out N o longer eligible based on patient's age to complete this topic Goals Goal Patient Goal Type Associated Problems Recent Progress Patient-Stated? Author BLOOD PRESSURE - MAINTAINS BP less than 140/90 Blood Pressure No Maria Luisa Price MD Medical Devices Implanted Type Area Platform Operations Director Device Identifier Shelf Expiration Date Model / Serial / Lot Singh Lmbr 60x5.5mm Tsrh 3d Cvd [facility] - [id number] Implanted:Qty: 2 on 05/25/2021 by Eduardo Platt MD at [facility] Spine Implants N/A: Spine Medtronic Spine/Ortho [id number] / / [id number] bone 1-4mm 15cc Medtronic Chips Canclls Freeze Dried Implanted:Qty: 1 on 05/25/2021 by Eduardo Platt MD at [facility] Explanted:at [facility] (Quantity not on file) N/A: Spine Medtronic Spine/Ortho 05/19/2025 [id number] / [id number] / Dura Neuro 1xin Duragen Plusnon-Sut - [id number] Implanted:Qty: 1 on 05/25/2021 by Eduardo Platt MD at [facility] N/A: Spine Integra [employer] Mercedes 03/13/2024 [id number] / / [id number] Screw Lmbr Tsrh 3dx - [id number] Implanted:Qty: 6 on 05/25/2021 by Eduardo Platt MD at [facility] N/A: Spine Medtronic Spine/Ortho [id number] / / Cnnctr Lmbr Sm Tsrh 3dx Offsettitnm - [id number] Implanted:Qty: 6 on 05/25/2021 by Eduardo Platt MD at [facility] N/A: Spine Medtronic Spine/Ortho [id number] / / Screw Lmbr Post 6.5x35mm Tsrh 3dx Og Thin Va - [id number] Implanted:Qty: 1 on 05/25/2021 by Eduardo Platt MD at [facility] N/A: Spine Medtronic Spine/Ortho [id number] / / Screw Lmbr Post 6.5x45mm Tsrh 3dx Og Thin Va - [id number] Implanted:Qty: 2 on 05/25/2021 by Eduardo Platt MD at [facility] N/A: Spine Medtronic Spine/Ortho [id number] / / Screw Lmbr Post 7.5x35mm Tsrh 3dx Og Thin Va - [id number] Implanted:Qty: 1 on 05/25/2021 by Eduardo lPatt MD at [facility] N/A: Spine Medtronic Spine/Ortho [id number] / / Screw Lmbr Post 7.5x40mm Tsrh 3dx Og Thin Va - [id number] Implanted:Qty: 2 on 05/25/2021 by Eduardo Platt MD at [facility] N/A: Spine Medtronic Spine/Ortho [id number] / / Procedures Procedure Name Priority Date/Time Associated Diagnosis Comments SEDIMENTATION RATE Routine 12/21/2024 12 :14 PM CDT Myalgia C-REACTIVE PROTEIN Routine 12/21/2024 12 :14 PM CDT Myalgia XR SPINE LUMBAR 3 VIEWS Routine 12/21/2024 12:00 PM CDT Myalgia XR HIP 1 VIEW W PELVIS BILAT Routine 12/21/2024 11:55 AM CDT Myalgia BASIC METABOLIC PANEL Routine 12/07/2024 2:06 PM CDT Unspecified essential hypertension ECHO TTE COMPLETE WO CONTRAST Routine 11/23/2024 10:58 AM CDT S/P TAVR (transcatheter aortic valve replacement) CREATININE Routine 10/07/2024 10:51 AM CDT Chronic kidney disease, stage 3b (HC) XR DXA BONE DENSITY 2 SITES AXIAL Routine 02/23/2024 2:00 PM CDT Senile osteoporosis from Last 3 Months or Most Recently Relevant to Health Maintenance Results * SEDIMENTATION RATE (12/21/2024 12:14 PM CDT) SED RATE BY MODIFIED MASONERGREN 2 < OR = 30 mm/h [facility] Blood BLOOD SPECIMEN / Unknown 12/21/2024 12:14 PM CDT 12/21/2024 12:16 PM CDT Karlene LIZARRAGA HEMATOLOGY Final Result [facility] [address] [place] [address], [facility] [address] [place] [address] * C-REACTIVE PROTEIN (12/21/2024 12:14 PM CDT) C-REACTIVE PROTEIN <3.0 <8.0 mg/L [facility] Blood BLOOD SPECIMEN / Unknown 12/21/2024 12:14 PM CDT 12/21/2024 12:16 PM CDT Karlene LIZARRAGA CHEMISTRY Final Result [facility] [address] [place] [address], [place] [phone] [facility] [address] [place] [address] * XR SPINE LUMBAR 3 VIEWS (12/21/2024 12:00 PM CDT) Anatomical Region Laterality Modality LUMBAR SPINE Computed Radiogr aphy 12/23/2024 10:5 2 AM CDT Impressions 12/23/2024 10:52 AM CDT No significant interval change. No specific findings to explain myalgia. Dictated by Shiva Jin MD @ 12/23/2024 10:52:35 AM (Electronically Signed) Narrative 12/23/2024 10:52 AM CDT For Patients: As a result of the Cures Act, medical imaging exams and procedure reports are released immediately into your electronic medical record. You may view this report before your referring provider. If you have questions, please contact your health care provider. INDICATION: M79.10 Myalgia ICD-10-CM Myalgia. (Sic) COMPARISON: 05/28/2021 TECHNIQUE: AP, lateral and coned lumbosacral lateral views of the lumbar spine. FINDINGS: Diffuse osteopenia. Redemonstration of instrumented fusion of the lumbosacral spine from L4 through S1 with bilateral posterior paraspinal rods and pedicle screws, bone graft material superimposed upon the facet joints and laminectomies at L4 and L5. TAVR. Chronic diffuse abdominal aortoiliac atherosclerotic mural calcification. Procedure Note Shiva Jin MD - 12/23/2024 For Patients: As a result of the Cures Act, medical imagingexams and procedure reports are released immediately into your electronicmedical record. You may view this report before your referring provider.If you have questions, please contact your health care provider. INDICATION: M79.10 Myalgia ICD-10-CM Myalgia. (Sic) COMPARISON: 05/28/2021 TECHNIQUE: AP, lateral and coned lumbosacral lateral views of the lumbar spine. FINDINGS: Diffuse osteopenia. Redemonstration of instrumented fusion of the lumbosacral spine from [id number] S1 with bilateral posterior paraspinal rods and pedicle screws,bone graft material superimposed upon the facet joints and laminectomiesat L4 and L5. TAVR. Chronic diffuse abdominal aortoiliac atherosclerotic muralcalcification. IMPRESSION: No significant interval change. No specific findings to explain myalgia. Dictated by Shiva Jin MD @ 12/23/2024 10:52:35 AM (Electronically Signed) us [facility]ARR[facility] Final Result * XR HIP 1 VIEW W PELVIS BILAT (12/21/2024 11:55 AM CDT) Anatomical Region Laterality Modality HIPS, HIPL, HIPR, Pelvis Compute d Radiography 12/23/2024 10:4 8 AM CDT Impressions 12/23/2024 10:48 AM CDT No acute or significant interval findings to explain the clinical history. Incidental findings described in the body of the report. Dictated by Shiva Jin MD @ 12/23/2024 10:48:56 AM (Electronically Signed) Narrative 12/23/2024 10:48 AM CDT For Patients: As a result of the Cures Act, medical imaging exams and procedure reports are released immediately into your electronic medical record. You may view this report before your referring provider. If you have questions, please contact your health care provider. INDICATION: M79.10 Myalgia ICD-10-CM Myalgia. (Sic) COMPARISON: 06/01/2024 TECHNIQUE: AP pelvis and rolled lateral views of the right and left hips (three views). FINDINGS: Mineralization: Normal. Alignment: Normal. Bones and Joints: No fracture is identified. Redemonstration of lumbosacral spinal fusion hardware which is only partially included in the field of view. Soft Tissues: Unremarkable. Procedure Note Shiva Jin MD - 12/23/2024 For Patients: As a result of the 21st Century Cures Act, medical imagingexams and procedure reports are released immediately into your electronicmedical record. You may view this report before your referring provider.If you have questions, please contact your health care provider. INDICATION: M79.10 Myalgia ICD-10-CM Myalgia. (Sic) COMPARISON: 06/01/2024 TECHNIQUE: AP pelvis and rolled lateral views of the right and left hips (threeviews). FINDINGS: Mineralization: Normal. Alignment: Normal. Bones and Joints: No fracture is identified. Redemonstration oflumbosacral spinal fusion hardware which is only partially included in thefield of view. Soft Tissues: Unremarkable. IMPRESSION: No acute or significant interval findings to explain the clinical history.Incidental findings described in the body of the report. Dictated by Shiva Jin MD @ 12/23/2024 10:48:56 AM (Electronically Signed) Karlene LIZARRAGA [facility] Final Result * (ABNORMAL) BASIC METABOLIC PANEL (12/07/2024 2:06 PM CDT) GLUCOSE 179(H) 65 - 99 mg/dL [facility] Comment: Fasting reference interval For someone without known diabetes, a glucose value >125 mg/dL indicates that they may have diabetes and this should be confirmed with a follow-up test. UREA NITROGEN (BUN) 33(H) 7 - 25 mg/dL [facility] CREATININE 1.65(H) 0.60 - 0.95 mg/dL [facility] EGFR 30(L) > OR = 60 mL/min/1.7 3m2 [facility] BUN/CREATININE RATIO 20 6 - 22 (calc) [facility] SODIUM 138 135 - 146 mmol/L [facility] POTASSIUM 3.9 3.5 - 5.3 mmol/L [facility] CHLORIDE 99 98 - 110 mmol/L [facility] CARBON DIOXIDE 29 20 - 32 mmol/L [facility] ELECTROLYTE BALANCE 10 7 - 17 mmol/L (calc) [facility] CALCIUM 9.7 8.6 - 10.4 mg/dL [facility] Blood BLOOD SPECIMEN / Unknown 12/07/2024 2:06 PM CDT 12/07/2024 2:06 PM CDT Lazara Del Rio DO CHEMISTRY Final Result [facility] [address] [place] [address], [facility] [address] [facility] [place] [address] * ECHO TTE COMPLETE WO CONTRAST (11/23/2024 10:58 AM CDT) AORTIC VALVE MEAN PG 10 mmHg EJECTION FRACTION 62 % PEAK TR VELOCITY 2.6 m/s LVEDD 4.0 cm EJECTION FRACTION 60 - 65% Anatomical Region Laterality Modality Ultrasound 11/23/2024 10:2 6 AM CDT Narrative 11/23/2024 12:06 PM CDT ECHOCARDIOGRAM ANNE PARRA : 1935 89 years Study Date: 11/23/2024 10:26:25 AM Gender: F BP: 194/76 mmHg Height: 157.00 cm BSA: 1.70 m Weight: 69.00 kg Tech: GARO Referring MD: JHOAN STALLINGS Site: [facility] [place] Location: Mobile-OP Patient Location: Outpatient. Procedure: 2D, Color Doppler and Spectral Doppler. Indication for study: ss/p TAVR Cardiac Rhythm: Irregular.Study quality: Fair. Final Impressions: 1. LVEF estimate 60-65%. Normal LV size. Mild concentric LVH. 2. Normal RV size and global function. 3. TAVR with 26 mm Hobbs. No stenosis [V-max 2.3 m/s and MG 10 mmHg] and mild probably valvular AI. 4. Mild MR and mild TR. 5. Normal RAP estimate. Chamber Sizes and Function Mild concentric left ventricular hypertrophy. No resting regional wall motion abnormality visualized. Left atrial size is normal. Right ventricular cavity size is normal, global systolic RV function is normal. The right atrium is normal. Right atrial volume index is 16 ml/m . Right atrial area is 13 cm . The pulmonary artery is not well visualized. The sinus of Valsalva is normal sized. The ascending aorta is normal sized. Valves, RV Pressures and Diastolic Function The aortic valve is Hobbs, no stenosis and mild regurgitation. The mitral valve is sclerotic, mild mitral regurgitation. Spectral Doppler shows Grade 1 pattern of LV diastolic filling. The tricuspid valve is normal in structure, mild tricuspid regurgitation. The tricuspid regurgitant velocity is 2.6 m/s, the estimated right ventricular systolic pressure is 27 mmHg plus right atrial pressure. There is normal estimated pulmonary pressure by tricuspid regurgitation velocity and right atrial pressure. The pulmonic valve is not well visualized. Mild pulmonary regurgitation. Masses, Effusion, Shunts There is no pericardial effusion. The inferior vena cava is normal sized, respiratory size variation greater than 50%. No left to right shunting was detected by limited color flow Doppler interrogation of the interatrial septum. MEASUREMENTS AND CALCULATIONS 2-D Measurements and LV Function: LVID (d) 4.0 cm LV FS% (2D) 53 % LVID (s) 1.9 cm LVOT diameter 2.3 cm IVS (d) 1.2 cm HR 67 bpm LVPW (d) 1.2 cm LA Vol index 28 ml/m2 Ao Sinus 3.6 cm RA Vol index 16 ml/m2 Ao Sinus ULN 3.7 cm * RA area 13 cm Asc Ao 4.0 cm RV Basal Diam 2.7 cm Asc Ao ULN 4.0 cm * RV Mid Diam 2.0 cm LA 4.1 cm * Input age outside of range, reported values correspond to Age = 81 Diastology: Tissue Doppler e', Septum 0.04 m/s e', Lateral 0.07 m/s Aortic Valve: Vmax 2.3 m/s RENY (V) 1.67 cm AI P 1/2 496 msec VTI 0.54 m RENY (I) 1.76 cm LVOT V max 0.9 m/s Max PG 22 mmHg LVOT VTI 0.23 m Mean PG 10 mmHg SV 95 ml Dim Index 0.43 SV index 56 ml/m CO 6.3 l/min CI 3.7 l/min/m Tricuspid Valve and estimated PA pressures: TR Vmax 2.6 m/s TAPSE 2.3 cm TR maxG 27 mmHg . This study was interpreted by an [facility] accredited facility. Final Procedure Note Ivan Davidson MD - 11/23/2024 ECHOCARDIOGRAM ANNE PARRA : 1935 89 years Study Date: 11/23/2024 10:26:25 AM Gender: F BP: 194/76 mmHg Height: 157.00 cm BSA: 1.70 m Weight: 69.00 kg Tech: DEIDRE Referring MD: JHOAN STALLINGS Site: [facility] [place] Location: Mobile-OP Patient Location: Outpatient. Procedure: 2D, Color Doppler and Spectral Doppler. Indication for study: ss/p TAVR Cardiac Rhythm: Irregular.Study quality: Fair. Final Impressions: 1. LVEF estimate 60-65%. Normal LV size. Mild concentric LVH. 2. Normal RV size and global function. 3. TAVR with 26 mm Hobbs. No stenosis [V-max 2.3 m/s and MG 10 mmHg]and mild probably valvular AI. 4. Mild MR and mild TR. 5. Normal RAP estimate. Chamber Sizes and Function Mild concentric left ventricular hypertrophy. No resting regional wallmotion abnormality visualized. Left atrial size is normal. Rightventricular cavity size is normal, global systolic RV function is normal.The right atrium is normal. Right atrial volume index is 16 ml/m . Rightatrial area is 13 cm . The pulmonary artery is not well visualized. Thesinus of Valsalva is normal sized. The ascending aorta is normal sized. Valves, RV Pressures and Diastolic Function The aortic valve is Hobbs, no stenosis and mild regurgitation. Themitral valve is sclerotic, mild mitral regurgitation. Spectral Dopplershows Grade 1 pattern of LV diastolic filling. The tricuspid valve isnormal in structure, mild tricuspid regurgitation. The tricuspidregurgitant velocity is 2.6 m/s, the estimated right ventricular systolicpressure is 27 mmHg plus right atrial pressure. There is normal estimatedpulmonary pressure by tricuspid regurgitation velocity and right atrialpressure. The pulmonic valve is not well visualized. Mild pulmonaryregurgitation. Masses, Effusion, Shunts There is no pericardial effusion. The inferior vena cava is normal sized,respiratory size variation greater than 50%. No left to right shunting wasdetected by limited color flow Doppler interrogation of the interatrialseptum. MEASUREMENTS AND CALCULATIONS 2-D Measurements and LV Function: LVID (d) 4.0 cm LV FS% (2D) 53% LVID (s) 1.9 cm LVOT diameter2.3 cm IVS (d) 1.2 cm HR 67bpm LVPW (d) 1.2 cm LA Vol index 28ml/m2 Ao Sinus 3.6 cm RA Vol index 16ml/m2 Ao Sinus ULN 3.7 cm * RA area 13cm Asc Ao 4.0 cm RV Basal Diam2.7 cm Asc Ao ULN 4.0 cm * RV Mid Diam2.0 cm LA 4.1 cm * Input age outside of range, reported values correspond to Age = 81 Diastology: Tissue Doppler e', Septum 0.04 m/s e', Lateral 0.07 m/s Aortic Valve: Vmax 2.3 m/s RENY (V) 1.67 cm AI P 1/2 496 msec VTI 0.54 m RENY (I) 1.76 cm LVOT V max 0.9 m/s Max PG 22 mmHg LVOT VTI 0.23 m Mean PG 10 mmHg SV 95 ml Dim Index 0.43 SV index 56 ml/m CO 6.3 l/min CI 3.7 l/min/m Tricuspid Valve and estimated PA pressures: TR Vmax 2.6 m/s TAPSE 2.3 cm TR maxG 27 mmHg . This study was interpreted by an [facility] accredited facility. Final us Jhoan Stallings MD ECHO ORD Final Result * (ABNORMAL) CREATININE (10/07/2024 10:51 AM CDT) CREATININE 1.68(H) 0.60 - 0.95 mg/dL [facility] EGFR 29(L) > OR = 60 mL/min/1.73 m2 [facility] Blood BLOOD SPECIMEN / Unknown 10/07/2024 10:51 AM CDT 10/07/2024 10:51 AM CDT Trenton Del Rio DO CHEMISTRY Final Result [facility] [address] [place] [address], [facility] [address] [place] [address] * (ABNORMAL) XR DXA BONE DENSITY 2 [...] to assess therapeutic efficacy. Jolene Samuel PA-C [facility] 02/24/2024 Narrative 02/24/2024 3:15 PM CDT For Patients: Results are automatically released to your [facility] ([employer]) account once available, in compliance with federal regulations. This means that you may see your results before your provider has had a chance to review them. Please allow 2-3 business days for your provider to comment on the results. XR DXA Bone Mineral Density (BMD) EXAM LOCATION: [address] [address] PATIENT NAME: Anne Parra DATE OF : [...] two scanners are made by the same vehicle body sander. PROCEDURE: Dual-energy x-ray absorptiometry performed with routine [...] Z-Score: - 0.5 Change from prior in 2014: Decrease 1.1%. RESULTS FEMUR Left femoral neck [...] Osteoporosis: T-score at or below -2.5 SD Lazara Alvarengaqra DO DEXA Final Result from Last 3 Months or Most Recently Relevant to Health Maintenance Insurance MEDICARE PPS [facility] MEDICARE PB ONLY MEDICARE PART B HB ONLY MEDICARE PART A HB ONLY [facility] Advance Directives Documents on File Type Date Recorded Patient Prototype Technician Expl anation Healthcare Directive 12/09/2014 12:27 PM Russ BENEDICT, 01/19/2014 * Full Code (Latest Code [...] 9:28 AM 11/24/2008 6:35 PM Care Teams Property Claims Adjuster Relationship Specialty Start Date End Date Lazara Del Rio [place] [address] PCP - General Family Practice 11/21/22 Elisa Hernández PA Cardiology Physician Credit Portfolio Advisor 05/24/20 [place] [id number] [place] [address] Endocrinology Endocrinology 06/16/24
--- NOTE | 2025-01-05 09:00 | ED.GENADULT ---
HPI - General Adult General Date Seen: 01/05/25 Chief complaint: Arrhythmia/Palpitations Stated complaint: felt like she was going to pass out- light headed Time Seen by Provider: 01/05/25 07:56 History of Present Illness HPI narrative: 89 yo F with history of atrial fibrillation presents to the ER this morning with palpitations. She woke up with AFib between 4 and 5:00 a.m.. She was able to go back to bed when she got up later this morning she went to take her morning meds but got very lightheaded, sweaty and presyncopal. This lasted for about 10 minutes. Feeling better now. She has a past medical history of atrial fibrillation, coronary artery disease, aortic valve replacement (TAVR). She is on Xarelto for stroke prophylaxis. She has hypertension and is on metoprolol 25 mg XL, chlorthalidone 25 mg, amlodipine 5 mg. She takes aspirin. She also has a history type 2 diabetes, chronic kidney disease, elevated homocystine, lumbar spondylolisthesis, hyperlipidemia Per medical record, She was seen in the ER in May 2023 for weakness and an episode of AFib. She does have a history of paroxysmal AFib but has not felt any runs of it in a couple of years. She recently had some pain in her right lower extremity and was put on a 7 day course of prednisone by her PCP with suspicion that was probably arthritis information. That is actually gotten better and she has now finished the prednisone a couple of days ago. She notes that the prednisone did cause some hyperactivity and a little bit of trouble sleeping for a couple of nights. She never had any swelling in her leg. No history of DVT or PE. She has been consistent and regular about taking her Xarelto. This morning at about 4 5:00 a.m. while she was in bed she noticed some irregularity and palpitations of her heart and recognize that she was having run of AFib. No other major symptoms with that such as shortness of breath, chest pain, lightheadedness. The AFib went away on its own she was able to go back to sleep. This is unusual because she has not actually felt any AFib for a couple of years. Otherwise not really alarming to the patient. Later this morning she got a bed after she got up she started to feel very lightheaded and weak, dizzy almost like she was going to pass out and also got very sweaty. This lasted about 10 minutes and she called her neighbor to asked her neighbor to bring her to the ER. She had not had time to even get anything to eat or drink for breakfast and did not take her morning meds. Symptoms lasted about 10 minutes and stopped for she got here to the ER. Although she is feeling back to normal now, she wanted to get checked out. She was not having any chest pain. No shortness of breath. No headache. No unilateral weakness. She has not had any other episodes of lightheadedness like this recently. No recent chest pains. No swelling in her legs. No shortness of breath. No cough. Related Data Home Medications ?Medication ?Instructions ?Recorded ?Confirmed amlodipine 2.5 mg tablet 2.5 mg PO DAILY 05/21/23 11/03/24 betamethasone, augmented 0.05 % 1 applic topical BID 05/21/23 11/03/24 topical cream blood sugar diagnostic (True #10 ea 05/21/23 05/21/23 Metrix Glucose Test Strip) chlorthalidone 25 mg tablet 12.5 mg PO QAM 05/21/23 11/03/24 clobetasol 0.05 % topical ointment 1 applic topical BID PRN 05/21/23 11/03/24 losartan 50 mg tablet 50 mg PO DAILY 05/21/23 11/03/24 metoprolol succinate 25 mg 25 mg PO DAILY 05/21/23 11/03/24 tablet,extended release 24 hr rivaroxaban 15 mg tablet (Xarelto) 15 mg PO DAILY 05/21/23 11/03/24 rosuvastatin 40 mg tablet 40 mg PO DAILY 05/21/23 11/03/24 amlodipine 5 mg tablet 5 mg PO DAILY 11/03/24 11/03/24 empagliflozin 10 mg tablet 10 mg PO DAILY 11/03/24 11/03/24 (Jardiance) fluocinonide 0.05 % topical topical DAILY PRN 11/03/24 solution potassium chloride 20 mEq 20 meq PO DAILY 11/03/24 11/03/24 tablet,extended release(part/cryst) Allergies Allergy/AdvReac Type Severity Reaction Status Date / Time hydrocortisone Allergy Verified 11/03/24 08:03 [facility] Social History Smoking Status: Never smoker Do you use any of these nicotine containing products: None Second hand tobacco smoke exposure: No How often do you have a drink containing alcohol: never How often do you have six or more drinks on one occasion: Never AUDIT-C Alcohol total score: 0 Non-prescribed substance use: denies use service: No Exam Narrative: Exam Narrative: Constitutional: Appears well-developed and well-nourished. Alert. Conversant. Non toxic. HENT: Head: Atraumatic. Nose: Nose normal. Mouth/Throat: Oral mucosa is clear and moist. no trismus. Pharynx normal. Tonsils symmetric. No tonsillar enlargement, erythema, or exudate. Eyes: Conjunctivae normal. EOM normal. Pupils equal, round, and reactive to light. No scleral icterus. Neck: Normal range of motion. Neck supple. No tracheal deviation present. No JVD Cardiovascular: Normal rate, regular rhythm. No gallop. No friction rub. No murmur heard. Symmetric radial and PT artery pulses Pulmonary/Chest: Effort normal. No stridor. No respiratory distress. No wheezes. No rales. No rhonchi . No tenderness. Abdominal: Soft.No distension. No mass. No tenderness. No rebound. No guarding. Musculoskeletal: RUE: Normal range of motion. No tenderness. No deformity LUE: Normal range of motion. No tenderness. No deformity RLE: Normal range of motion. No edema. No tenderness. No deformity LLE: Normal range of motion. No edema. No tenderness. No deformity Neurological: Alert and oriented to person, place, and time. Normal strength. CN II-VII intact. No sensory deficit. GCS eye subscore is 4. GCS verbal subscore is 5. GCS motor subscore is 6. Normal coordination Skin: Skin is warm and dry. No rash noted. No pallor. Normal capillary refill. Psychiatric: Normal mood. Normal affect. Const: Vital Signs, click to edit/add: Vital Signs - 24 hr 01/05/25 08:03 01/05/25 08:32 01/05/25 09:02 Temperature 97.2 F L Pulse Rate 53 L 55 L Pulse Rate [Pulse Oximeter] 68 Respiratory Rate 20 18 19 Blood Pressure 140/67 H 125/56 L Blood Pressure [Ri ght Upper Arm] 138/81 Pulse Oximetry 97 94 92 01/05/25 09:36 01/05/25 10:02 Temperature Pulse Rate 57 L 55 L Pulse Rate [Pulse Oximeter] Respiratory Rate 18 19 Blood Pressure 142/64 H 149/58 H Blood Pressure [Ri ght Upper Arm] Pulse Oximetry 97 96 Course Vital Signs Vital signs: Initial Vital Signs Temperature 97.2 F L 01/05/25 08:03 Temperature Source Temporal Artery Scan 01/05/25 08:03 Pulse Rate 68 01/05/25 08:03 Respiratory Rate 20 01/05/25 08:03 Blood Pressure 138/81 01/05/25 08:03 Blood Pressure Mean 100 01/05/25 08:03 Blood Pressure Position Sitting 01/05/25 08:03 Pulse Oximetry 97 01/05/25 08:03 Vital Signs Temperature 97.2 F L 01/05/25 08:03 Pulse Rate 68 01/05/25 08:03 Respiratory Rate 20 01/05/25 08:03 Blood Pressure 138/81 01/05/25 08:03 Pulse Oximetry 97 01/05/25 08:03 Temperature 97.2 F L 01/05/25 08:03 Pulse Rate 55 L 01/05/25 10:02 Respiratory Rate 19 01/05/25 10:02 Blood Pressure 149/58 H 01/05/25 10:02 Pulse Oximetry 96 01/05/25 10:02 Medications Administered Medications: Discontinued Medications Generic Name Dose Route Start Last Admin Trade Name Freq PRN Reason Stop Dose Admin Sodium Chloride 1,000 mls @ 1,000 mls/hr 01/05/25 09:30 01/05/25 09:35 0.9 % Sodium Chloride 1000 Ml IV 01/05/25 10:29 1,000 mls/hr .Q1H BOYD Administration Medical Decision Making MDM Narrative Medical decision making narrative: This patient presents for evaluation of a syncopal event. A broad differential was considered. History provided suggests a benign cause of her dizziness. She does have a history of TAVR but no evidence for CHF at this time. A broad differential diagnosis was considered including SVT, Atrial fibrillation, ventricular arrhythmia, thyroid disease, acute electrolyte abnormality, drugs/medications, medication side effect, anemia, heart disease,among others. Initial ECG shows normal sinus rhythm and no dysrhythmogenic abnormality such as WPW, prolonged QT, Brugada syndrome, and no ischemia. She has a history of atrial fibrillation and did feel an episode that early this morning but was not having symptoms typical of AFib when she had her dizzy spell. No chest pain. We did consider possible atypical presentation of ACS. EKG is nonischemic. Initial and 2 hour delta troponins are normal. Primary concern is suture min whether not this was simply a dehydration and orthostatic episode of presyncope because it did happen when she 1st got up and walked-after getting out of bed or whether not she was having some sort of arrhythmia or bradycardia such as third-degree AV block or sick sinus syndrome or slow AFib. church official throughout her stay here in the ER showed sinus rhythm ordering on sinus bradycardia with heart rate 58-61. church official while the patient here in the ER showed no dysrhythmia or ectopy. She is already on metoprolol and has been therapeutically taking it. She does not think she took too much of her medication. Consider hospitalization for cardiac monitoring overnight to see if she has any more episodes. Possibility for intermittent third-degree AV block or sick sinus syndrome. She certainly has risk factors for potentially serious cause of syncope/presyncope- including history of AFib, history of aortic valve disease, history of coronary artery disease, and age. Patient strongly prefers to go home and I think that is reasonable. She does not want stay in hospital today. She is ambulatory in the hallway here in the ER without difficulty and she has no recurring symptoms. No headache or other neurologic symptoms to suggest subarachnoid , stroke . No reported seizure-like activity or postictal phase. Clinical judgement suggests that supportive outpatient management is reasonable. Recommend follow up with PCP for recheck. Questions answered and return precautions given Lab Data Labs: Lab Results 01/05/25 01/05/25 Range/Units 09:30 11:30 WBC 10.30 (4.50-11.00) K/uL RBC 4.45 (4.00-5.20) m/uL Hgb 13.6 (12.0-16.0) gm/dL Hct 40.5 (33.0-51.0) % MCV 91 (80-100) fL MCH 31 (26-34) pg MCHC 34 (32-36) gm/dL RDW Coeff of Leanna 12.6 (11.5-15.5) % Plt Count 214 (140-440) K/uL Neut % (Auto) 81.9 H (42.0-72.0) % Lymph % (Auto) 9.5 L (20-44) % [place] % (Auto) 7.2 (0.0-11.0) % Eos % (Auto) 0.6 (0.0-7.0) % Baso % (Auto) 0.2 (0.0-3.0) % Neut # (Auto) 8.40 H (1.7-7.0) K/uL Lymph # (Auto) 1.00 (0.90-2.90) K/uL [place] # (Auto) 0.70 (0.00-0.90) K/UL Eos # (Auto) 0.06 (0.00-0.50) K/uL Baso # (Auto) 0.02 (0.00-0.30) K/uL Abs Immat Gran (auto) 0.06 (0.00-0.30) K/uL Imm/Tot Granulo (auto) 0.6 % Sodium 135 (135-149) mmol/L Potassium 3.1 L (3.6-5.1) mmol/L Chloride 97 (96-114) mmol/L Carbon Dioxide 32 (20-32) mmol/L Anion Gap 6 L (7-15) mEq/L BUN 33 H (7-30) mg/dL Creatinine 1.5 (0.5-1.5) mg/dL Estimated Creat Clear 21.45 Estimated GFR 33 ml/min Glucose 204 H (60-115) mg/dL Calcium 9.4 (8.4-10.6) mg/dL TSH 2.790 (0.270-4.200) uIU/mL POC Troponin I 0.02 0.03 (0.01-0.04) ng/ml ECG Data Attestation: I personally reviewed and interpreted this ECG as follows: Interpretation: Sinus bradycardia with sinus arrhythmia Rate: 58 IN: 188 QRS axis: Left axis deviation. Left ventricular hypertrophy. ST segment/T wave: No ST segment elevation or depression. LVH with some strain pattern. QTc: 428 Discharge Plan Discharge Clinical Impression: Pre-syncope Patient Disposition: Home, Self-Care Condition: Stable Instructions: Near Syncope (ED) Additional Instructions: As we discussed, right now we do not know with certainty what caused your dizzy spell. Please monitor your symptoms carefully and if you have any more episodes of dizziness, or palpitations, or if you have any other new symptoms such as chest pain, call 911 return to the ER immediately. For now continue on your regular medications. Please follow-up with your regular doctor for recheck within the next 1-2 weeks. Prescriptions: No Action metoprolol succinate 25 mg tablet extended release 24 hr 25 mg PO DAILY losartan 50 mg tablet 50 mg PO DAILY amlodipine 2.5 mg tablet 2.5 mg PO DAILY chlorthalidone 25 mg tablet 12.5 mg PO QAM Xarelto 15 mg tablet 15 mg PO DAILY (DME) True Metrix Glucose Test Strip Strip See Rx Instructions .ROUTE DAILY Qty: 10 Rx Instructions: As directed betamethasone, augmented 0.05 % cream 1 applic topical BID clobetasol 0.05 % ointment 1 applic topical BID PRN rosuvastatin 40 mg tablet 40 mg PO DAILY amlodipine 5 mg tablet 5 mg PO DAILY potassium chloride 20 mEq tablet,ER particles/crystals 20 meq PO DAILY fluocinonide 0.05 % solution topical DAILY PRN Jardiance 10 mg tablet 10 mg PO DAILY Follow Up/Referrals: Lazara Del Rio, [Primary Care Provider, Family Practice] Stand Alone Forms: [employer] Info Instructions
[2025-01-05] MEDS: 0.9 % SODIUM CHLORIDE 1000 ml 1,000 ML IV (09:35)
[2025-01-05 09:45] LABS: Basophils Absolute Auto 0.02 K/uL (0.00-0.30); Basophils Percent Auto 0.2 % (0.0-3.0); Eosinophils Absolute Auto 0.06 K/uL (0.00-0.50); Eosinophils Percent Auto 0.6 % (0.0-7.0); Hematocrit 40.5 % (33.0-51.0); Hemoglobin* 13.6 gm/dL (12.0-16.0); Immature Granulocytes Abs Auto 0.06 K/uL (0.00-0.30); Immature Granulocytes Pct Auto 0.6 %; Lymphocytes Percent Auto 9.5 % (20-44); Mean Corpuscular HGB Conc 34 gm/dL (32-36); Mean Corpuscular Hemoglobin 31 pg (26-34); Mean Corpuscular Volume 91 fL (80-100); Monocytes Percent Auto 7.2 % (0.0-11.0); Neutrophils Percent Auto 81.9 % (42.0-72.0); Platelet Count* 214 K/uL (140-440); RDW Coefficient of Variation % 12.6 % (11.5-15.5); Red Blood Count 4.45 m/uL (4.00-5.20)
[2025-01-05 09:49] LABS: Slide Review Reflex No
[2025-01-05 09:59] LABS: Chloride* 97 mmol/L (96-114)
[2025-01-05 10:00] LABS: Potassium* 3.1 mmol/L (3.6-5.1); Sodium* 135 mmol/L (135-149)
[2025-01-05 10:01] LABS: Troponin, Point-of-Care* 0.02 ng/ml (0.01-0.04)
[2025-01-05 10:03] LABS: Anion Gap 6 mEq/L (7-15); Blood Urea Nitrogen* 33 mg/dL (7-30); Calcium* 9.4 mg/dL (8.4-10.6); Carbon Dioxide* 32 mmol/L (20-32); Creatinine* 1.5 mg/dL (0.5-1.5); Est. Creatinine Clearance* 21.45; Estimated Glomerular Filt Rate 33 ml/min; Glucose* 204 mg/dL (60-115)
[2025-01-05 12:11] LABS: Troponin, Point-of-Care* 0.03 ng/ml (0.01-0.04)
== END 2025-01-05 13:02 | disposition home or self-care (01) ==
PROVIDERS: Emergency Provider Emergency Medicine; PCP Family Medicine
DX: R55 Syncope and collapse (principal)
CPT/HCPCS: 36415; 80048; 84443; 84484; 85025; 93005; 99283; J7030

== ENCOUNTER 2025-04-07 11:15 | Outpatient (RCR) | payer MEDICARE, BC, SELFPAY | END 2025-04-07 15:09 | disposition home or self-care (01) | PROVIDERS: PCP Family Medicine; Visit Provider Family Medicine | DX: M70.61 Trochanteric bursitis, right hip (principal); M54.16 Radiculopathy, lumbar region; Z51.89 Encounter for other specified aftercare | CPT/HCPCS: 97110; 97112; 97140; 97161 ==